=== PATIENT | male | born 1950 | race Caucasian/White ===

== ENCOUNTER 2017-02-24 10:04 | Inpatient (IN) | payer MEDICARE, OTHER ==
[2017-02-24] VITALS (7 sets, daily range): BP systolic 132–151; BP diastolic 60–83; PULSE 55–65; RESP 16–18; TEMP 96.6–97.8; O2SAT 95–99
[~2017-02-24] VITALS: Ht 180.3 cm; Wt 98.1 kg
[~2017-02-24 10:04] MED LIST: ASPI81 PO; ENOX40P SQ; FOLI1 PO; HYDR-3580 PO; LEFL20TA7 PO; LORA1TAB PO; METF500 PO; METH2.5 PO; PRAV20 PO; SERT-132 PO; TAMS0.4C67 PO
[2017-02-24] MEDS ORDERED: PRAV40TA2 PO (10:23)
[2017-02-24] MEDS ORDERED: SERT-132 PO (10:23)
[2017-02-24] MEDS ORDERED: FOLI1TAB6 PO (10:23)
[2017-02-24] MEDS ORDERED: LEFL1TAB3 PO (10:23)
[2017-02-24] MEDS ORDERED: ASPI-110 PO (10:23)
[2017-02-24] MEDS ORDERED: LORA1TAB12 PO (10:23)
[2017-02-24] MEDS ORDERED: METH2.5T PO (10:23)
[2017-02-24] MEDS ORDERED: METF500T PO (10:23)
--- NOTE | 2017-02-24 10:39 | PD ---
HPI Chief Complaint: Hip Injury Time Seen by Provider: 10:23 Travel History International Travel<30 days: No Contact w/Intl Traveler<30days: No Traveled to known affect area: No History of Present Illness HPI This is a 67-year-old male is complaining of pain in his left hip. He has a history of hip replacement. The original hip replacement was in April 2015. He had 2 subsequent dislocations and had a revision of the hip March 192015. Apparently a locking ring was used at that time. Patient has done well since then. He does say that occasionally he feels like it slipping but it is not dislocated. His morning he was leaning forward and he believes it may have dislocated. He is having pain in the left hip PFSH Past Medical History Hx Anticoagulant Therapy: Yes Arthritis: Yes Anxiety: Yes Depression: Yes Cancer: No Cardiovascular Problems: Yes High Cholesterol: Yes Diabetes: Yes (TYPE 2) Patient Takes Glucophage: Yes Diminished Hearing: No Endocrine: Yes (PSORIASIS) Gastrointestinal Disorders: Yes (REFLUX) GERD: Yes Genitourinary: Yes (BENIGN PROSTATIC HYPERTROPHY) Hepatitis: No Hiatal Hernia: No Hypertension: Yes Immune Disorder: Yes (RHEUMATOID ARTHRITIS) Musculoskeletal: Yes (ARTHRITIS) Neurologic: No Psychiatric: No Reproductive: No Respiratory: No Thyroid Disease: No Influenza Vaccination: Yes ?: Not Past Surgical History Abdominal Surgery: No AICD: No Cardiac Surgery: No Ear Surgery: No Endocrine Surgery: No Eye Surgery: No Genitourinary Surgery: No Gynecologic Surgery: No Joint Replacement: Yes (LEFT HIP REPLACEMENT ) Oral Surgery: No Pacemaker: No Thoracic Surgery: No Other Surgery: Yes (LEFT TOTAL HIP REPLACEMENT-APR 2015) Social History Alcohol Use: Yes ([facility]) Tobacco Use: No (quit 1990) Substance Use: Yes (MARIJUANA PER PATIENT) Allergies-Medications (Allergen,Severity, Reaction): Coded Allergies: No Known Allergies (Verified , 02/24/17) Reported Meds & Prescriptions Reported Meds & Active Scripts Active Reported Aspirin 81 (Aspirin) 81 Mg Tabdr 81 Mg PO DAILY Methotrexate 2.5 Mg Tab 2.5 Mg PO Q7D Folic Acid 1 Mg Tablet 1 Mg PO DAILY Leflunomide 20 Mg Tab 20 Mg PO DAILY Lorazepam 1 Mg Tab 1 Mg PO HS PRN Sertraline (Sertraline HCl) 50 Mg Tab 50 Mg PO DAILY Pravastatin 40 Mg Tab 40 Mg PO HS Metformin (Metformin HCl) 500 Mg Tab 500 Mg PO DAILY With a meal Review of Systems General / Constitutional: No: Fever, Chills Eyes: No: Diploplia, Blurred Vision HENT: No: Headaches, Vertigo Cardiovascular: No: Chest Pain or Discomfort, Palpitations Respiratory: No: Shortness of Breath Gastrointestinal: No: Nausea, Vomiting Genitourinary: No: Urgency, Frequency Musculoskeletal: Positive: Pain Skin: No Rash, No Itching Neurologic: No: Dizziness Psychiatric: No: Anxiety Physical Exam Narrative GENERAL: Well-developed male SKIN: Focused skin assessment warm/dry. HEAD: Atraumatic. Normocephalic. EYES: Pupils equal and round. No scleral icterus. No injection or drainage. ENT: No nasal bleeding or discharge. Mucous membranes pink and moist. NECK: Trachea midline. No JVD. CARDIOVASCULAR: Regular rate and rhythm. No murmur appreciated. RESPIRATORY: No accessory muscle use. Clear to auscultation. Breath sounds equal bilaterally. GASTROINTESTINAL: Abdomen soft, non-tender, nondistended. Hepatic and splenic margins not palpable. MUSCULOSKELETAL: No obvious deformities. No clubbing. No cyanosis. No edema. Left leg is shortened and internally rotated. There is tenderness in the left hip NEUROLOGICAL: Awake and alert. No obvious cranial nerve deficits. Motor grossly within normal limits. Normal speech. PSYCHIATRIC: Appropriate mood and affect; insight and judgment normal. Data Data Last Documented VS Vital Signs Date Time Temp Pulse Resp B/P Pulse Ox O2 Delivery O2 Flow Rate FiO2 02/24/17 11:20 99 28 02/24/17 11:20 2.00 02/24/17 11:19 18 02/24/17 10:06 97.8 62 138/73 Orders Hip, Uni(Ap&Lat) Wo Ap Pelvis (02/24/17 10:28) Ondansetron Inj (Zofran Inj) (02/24/17 10:45) Hydromorphone Pf Inj (Dilaudid Pf Inj) (02/24/17 10:45) Propofol 200 Mg/20 Ml Inj (Diprivan 200 (02/24/17 11:15) Electrocardiogram (02/24/17 11:46) Complete Blood Count With Diff (02/24/17 11:46) Basic Metabolic Panel (Bmp) (02/24/17 11:46) Prothrombin Time / Inr (Pt) (02/24/17 11:46) Act Partial Throm Time (Ptt) (02/24/17 11:46) Urinalysis - C+S If Indicated (02/24/17 11:46) MDM Medical Decision Making Medical Screen Exam Complete: Yes Emergency Medical Condition: Yes Medical Record Reviewed: Yes Differential Diagnosis Differential includes fracture, contusion, dislocation left hip Narrative Course X-ray shows a dislocation of the prosthetic hip. Attempts to reduce the hip were unsuccessful. I have discussed the case with Dr. Butler. Patient will be admitted to [facility] under Dr. Gomez's service Procedures Procedure Narrative Informed consent for procedural sedation was obtained. Patient was given 120 mg of propofol and appeared to be well sedated. Attempts to reduce the hip were made and were not successful. Diagnosis Primary Impression: Dislocation of internal left hip prosthesis Admitting Information Admitting Physician Requests: Admit Luis Felipe Alexis MD Feb 24, 2017 10:39
[2017-02-24] MEDS ORDERED: HYDROmorphone HCL PF 1 MG/ML VIAL IV PUSH ONE ×3 (10:45→15:00)
[2017-02-24] MEDS ORDERED: ONDANSETRON HCL 4 MG/2 ML VIAL IV PUSH ONE (10:45)
[2017-02-24] MEDS ORDERED: PROPOFOL 200 MG/20 ML AMP IV ONE (11:15)
--- NOTE | 2017-02-24 11:31 | RADRPT ---
EXAM DATE/TIME: 02/24/2017 10:44 [facility] COMPARISON: HIP LEFT (AP&LAT 2/3VWS) WO AP PELVIS, March 09, 2016, 20:09. INDICATIONS : Sudden onset of severe left hip pain, felt a pop in hip MEDICAL HISTORY : None. SURGICAL HISTORY : Left hip replacement ENCOUNTER: Initial ACUITY: 1 day PAIN SCORE: 9/10 LOCATION: Left hip FINDINGS: A dislocated left hip prosthesis is noted. The femoral component is superior to the acetabular cup. I t is uncertain whether it is dislocated anteriorly or posterior. Bony structures are intact. CONCLUSION: Dislocated left hip prosthesis. No evidence of acute fracture. Seamus Barajas MD on February 24, 2017 at 11:28 Board Certified Radiologist. This report was verified electronically.
[2017-02-24 12:08] LABS: AUTOMATED NEUTROPHIL # 4.9 TH/MM3 (1.8-7.7); BASOPHIL % 0.6 % (0.0-2.0); EOSINOPHIL % 0.8 % (0.0-4.0); HEMATOCRIT 41.8 % (39.0-51.0); HEMO FLAGS DIFF FINAL; LYMPH % 14.3 % (9.0-44.0); LYMPHOCYTE # 0.9 TH/MM3 (1.0-4.8); MEAN CELL VOLUME 91.1 FL (80.0-100.0); MEAN CORPUSCULAR HEMOGLOBIN 29.5 PG (27.0-34.0); MEAN CORPUSCULAR HGB CONC 32.4 % (32.0-36.0); MONO % 6.6 % (0.0-8.0); NEUT % 77.7 % (16.0-70.0); PLATELET COUNT 182 TH/MM3 (150-450); RED BLOOD COUNT 4.59 MIL/MM3 (4.50-5.90); RED CELL DISTRIBUTION WIDTH 14.8 % (11.6-17.2); WHITE BLOOD COUNT 6.2 TH/MM3 (4.0-11.0)
[2017-02-24 12:17] LABS: POTASSIUM 4.3 MEQ/L (3.5-5.1)
[2017-02-24 12:21] LABS: BICARBONATE 26.6 MEQ/L (21.0-32.0)
[2017-02-24 12:22] LABS: APTT (PATIENT) 28.3 SEC (24.3-30.1); PROTHROMBIN TIME - PATIENT 10.9 SEC (9.8-11.6)
[2017-02-24] MEDS ORDERED: SODIUM CHLOR 0.9% 1000 ML INJ 1,000 ML IV ONE (12:30)
[2017-02-24 13:36] LABS: BLOOD, URINE NEG (NEG); GLUCOSE,URINE NEG (NEG); KETONE, URINE NEG (NEG); NITRITE,URINE NEG (NEG); PH, URINE 5.5 (5.0-8.5)
[2017-02-24 13:37] LABS: METHOD OF COLLECTION CLEAN CATCH; URINE COLOR YELLOW (YELLW/STRAW)
[2017-02-24 13:42] LABS: COMMENT (UR) CULT NOT INDICATED; CULTURE IF INDICATED CULT NOT INDICATED; WBC, URINE 0-2 /hpf (0-5)
[2017-02-24] MEDS ORDERED: LORazepam 1 MG TAB PO PRN (17:45)
--- NOTE | 2017-02-24 18:20 | PD.CONS ---
HPI [facility] Consult Requested By Primary Care Physician Sherman Anderson M.D. Diagnoses: Past Family Social History Allergies: Coded Allergies: No Known Allergies (Verified , 02/24/17) Physical Exam Vital Signs Vital Signs Date Time Temp Pulse Resp B/P Pulse Ox O2 Delivery O2 Flow Rate FiO2 02/24/17 14:57 58 18 149/68 98 Room Air 02/24/17 13:31 65 18 151/78 96 Room Air 02/24/17 12:51 18 02/24/17 12:00 65 18 132/60 99 Nasal Cannula 2 02/24/17 11:56 65 99 Nasal Cannula 2 02/24/17 11:20 99 28 02/24/17 11:20 99 2.00 02/24/17 11:19 18 02/24/17 10:06 97.8 62 18 138/73 99 Physical Exam GENERAL: This is a well-nourished, well-developed patient, in no apparent distress. SKIN: No rashes, ecchymoses or lesions. Cool and dry. HEAD: Atraumatic. Normocephalic. No temporal or scalp tenderness. EYES: Pupils equal round and reactive. Extraocular motions intact. No scleral icterus. No injection or drainage. ENT: Nose without bleeding, purulent drainage or septal hematoma. Throat without erythema, tonsillar hypertrophy or exudate. Uvula midline. Airway patent. NECK: Trachea midline. No JVD or lymphadenopathy. Supple, nontender, no meningeal signs. CARDIOVASCULAR: Regular rate and rhythm without murmurs, gallops, or rubs. RESPIRATORY: Clear to auscultation. Breath sounds equal bilaterally. No wheezes , rales, or rhonchi. GASTROINTESTINAL: Abdomen soft, non-tender, nondistended. No hepato-splenomegaly , or palpable masses. No guarding. MUSCULOSKELETAL: Extremities without clubbing, cyanosis, or edema. No joint tenderness, effusion, or edema noted. No calf tenderness. Negative Homans sign bilaterally. NEUROLOGICAL: Awake and alert. Cranial nerves II through XII intact. Motor and sensory grossly within normal limits. Five out of 5 muscle strength in all muscle groups. Normal speech. Laboratory Laboratory Tests Test 02/24/17 02/24/17 10:35 13:25 White Blood Count 6.2 Red Blood Count 4.59 Hemoglobin 13.6 Hematocrit 41.8 Mean Corpuscular Volume 91.1 Mean Corpuscular Hemoglobin 29.5 Mean Corpuscular Hemoglobin 32.4 Concent Red Cell Distribution Width 14.8 Platelet Count 182 Mean Platelet Volume 9.0 Neutrophils (%) (Auto) 77.7 Lymphocytes (%) (Auto) 14.3 Monocytes (%) (Auto) 6.6 Eosinophils (%) (Auto) 0.8 Basophils (%) (Auto) 0.6 Neutrophils # (Auto) 4.9 Lymphocytes # (Auto) 0.9 Monocytes # (Auto) 0.4 Eosinophils # (Auto) 0.0 Basophils # (Auto) 0.0 CBC Comment DIFF FINAL Differential Comment Prothrombin Time 10.9 Prothromb Time International 1.0 Ratio Activated Partial 28.3 Thromboplast Time Sodium Level 141 Potassium Level 4.3 Chloride Level 107 Carbon Dioxide Level 26.6 Anion Gap 7 Blood Urea Nitrogen 16 Creatinine 0.91 Estimat Glomerular Filtration 83 Rate Random Glucose 107 Calcium Level 9.3 Urine Collection Type CLEAN CATCH Urine Color YELLOW Urine Turbidity CLEAR Urine pH 5.5 Urine Specific [place] 1.017 Urine Protein NEG Urine Glucose (UA) NEG Urine Ketones NEG Urine Occult Blood NEG Urine Nitrite NEG Urine Bilirubin NEG Urine Leukocyte Esterase NEG Urine WBC 0-2 Microscopic Urinalysis Comment CULT NOT INDICATED Result Diagram: 02/24/17 1035 02/24/17 1035 Kriss Long MD Feb 24, 2017 18:20
[2017-02-24] MEDS ORDERED: HYDROmorphone HCL PF 1 MG/ML VIAL IV PUSH PRN (18:45)
[2017-02-24] MEDS: HYDROmorphone HCL PF 1 MG/ML VIAL IV PUSH PRN (19:22)
[2017-02-24] MEDS: CYCLOBENZAPRINE HCL 10 MG TAB PO PRN (20:40)
[2017-02-24] MEDS: PRAVASTATIN SOD 40 MG TAB PO SCH (20:41)
[2017-02-24] MEDS ORDERED: LEFLUNOMIDE 20 MG PO SCH (21:00)
--- NOTE | 2017-02-24 21:31 | MH ---
cc: BASIL KULKARNI MD DATE OF ADMISSION 02/24/2017 ADMISSION DIAGNOSIS Dislocation left hip prosthesis. HISTORY OF THE PRESENT ILLNESS The patient is a 67-year-old white male who presented to the [facility] today with complaints of a dislocated left hip prosthesis. The patient had surgery on 03/19/2016 when he had a constrained acetabular liner placed due to recurrent hip dislocations following placement of a prosthesis. The patient reports that yesterday he felt something slide and apparently has had this sensation several times before. Today he was at his house and apparently working on a cabinet and he felt his hip dislocate. He presented to [facility]. A call was placed to Dr. Freddie Harris who was covering [facility] who subsequently placed a call to me. The patient is seen in his room on the sixth floor at [facility]. PAST MEDICAL HISTORY Significant for: 1. Psoriatic arthritis. 2. Hyperlipidemia. 3. Depression. 4. Anxiety. 5. And diabetes. PAST SURGICAL HISTORY The patient has had prior surgery includin. A left knee arthroscopy performed by the undersigned in December of 2012. 2. Arthroscopic treatment of his left shoulder performed by the undersigned on 12/31/2012. 3. And his right shoulder on 01/26/2013. 4. The patient had a left total hip arthroplasty performed on 05/11/2015 and subsequently suffered some hip dislocations. The patient had the constrained liner placed on 03/19/2016 and he was last seen in my office on 01/03/2017. CURRENT MEDICATIONS 1. Metformin 500 milligrams one per day. 2. Lorazepam 1 milligram one per day. 3. Leflunomide 20 milligrams one per day. 4. Zoloft 50 milligrams one per day. 5. Pravastatin 40 milligrams one per day. 6. Methotrexate 2.5 milligrams / 20 milligrams per week. 7. Aspirin 81 milligrams one per day. 8. Folic acid 1 milligram one per day. ALLERGIES None known. SOCIAL HISTORY The patient is and lives in [place], [place]. He is retired. FAMILY HISTORY Noncontributory to current orthopedic care. REVIEW OF SYSTEMS HEENT: Head negative. Eyes negative, Ears negative, Nose, mouth and throat negative. HEART: Negative. LUNGS: Negative. GASTROINTESTINAL: Negative. GENITOURINARY: Negative. MUSCULOSKELETAL: Pain Left Hip arthritis, weakness. CENTRAL NERVOUS SYSTEM: Negative. PSYCHIATRIC: Mood swings, anxiety. SKIN: Psoriasis. MIND: Poor memory. PHYSICAL EXAMINATION GENERAL: The patient is a well-developed, well-nourished white male. VITAL SIGNS: Stable. Afebrile. HEAD, EYES, EARS, NOSE, AND THROAT: Normocephalic, atraumatic. Pupils equal, round, reactive to light. Extraocular muscles intact. Ears non-tender. Nose non-obstructed. Posterior pharynx non-erythematous. NECK: No thyromegaly. No lymphadenopathy. LUNGS: Clear to auscultation bilaterally. HEART: Regular rate and rhythm. No murmurs heard. ABDOMEN: Soft, non-tender. EXTREMITIES: The patient has a well healed hip incision on the left side. His leg is in internal rotation and slight flexion consistent with a posterior hip dislocation. The patient is intermittently having some muscle spasms, otherwise however, he appears reasonably comfortable. He has gotten some pain medication. PATIENT TRANSPORT OFFICER: Mental status alert and oriented. Cranial nerves II through XII grossly intact. Motor intact. Sensory intact. This includes plantar flexion and dorsiflexion of his foot and toes. IMAGING X-rays from [facility] dated today demonstrate a dislocation of his constrained total hip prosthesis. The femoral component appears satisfactory. The acetabular component also appears satisfactory and well-fixed. The liner is in place and the locking ring is present on the liner and is in normal position. The femoral head however, is dislocated and this appears to be posterior. IMPRESSION Left hip dislocation of locked / constrained acetabular component total hip prosthesis. PLAN Discussed the patient's case with the patient care representative from the [employer] and I have discussed this situation with the patient. It appears at the most reasonable course is to exchange his liner and place a second locked liner. At this point I do not have a good explanation for how the patient sustained this dislocation either through repetitive wear of a liner or possibly a manufacturing defect. I have discussed with the patient that it will be necessary pull this liner however, it may well be torn apart in the extraction process. We will plan to proceed with surgery tomorrow afternoon. MD BEVERLY Urbina/DOUG /8:47 PM /9:21 PM [facility]
[2017-02-25] VITALS (7 sets, daily range): BP systolic 119–161; BP diastolic 64–91; PULSE 58–78; RESP 16–18; TEMP 98.1–99.5; O2SAT 95–100
[2017-02-25] MEDS: HYDROmorphone HCL PF 1 MG/ML VIAL IV PUSH PRN ×3 (01:41→09:59)
[2017-02-25] MEDS ORDERED: LACTATED RINGER'S 1000 ML IV PRN (03:30)
[2017-02-25] MEDS ORDERED: SODIUM CHLORID 0.9% 500 ML IV PRN (03:30)
[2017-02-25] MEDS ORDERED: CHLORHEXIDINE GLUCONATE 2 % 1 PACK (2 CLOTHS) TOPICAL PRN (03:30)
[2017-02-25] MEDS ORDERED: METOPROLOL TARTRATE 25 MG TAB PO PRN (03:30)
[2017-02-25] MEDS ORDERED: INSULIN HUMAN REGULAR 1,000 UNITS/10 ML VIAL SQ PRN (03:30)
[2017-02-25] MEDS ORDERED: POVIDONE IODINE 5% (ANTISEPSIS KIT) 4 APPLICATIONS EACH NARE PRN (03:30)
[2017-02-25] MEDS: CYCLOBENZAPRINE HCL 10 MG TAB PO PRN (04:29)
[2017-02-25] MEDS: ASPIRIN EC 81 MG TABEC PO SCH (07:45)
[2017-02-25] MEDS: FOLIC ACID 1 MG TAB PO SCH (09:58)
[2017-02-25] MEDS: SERTRALINE HCL 50 MG TAB PO SCH (09:58)
[2017-02-25] MEDS ORDERED: GENTAMICIN SULFATE 80 MG/2 ML VIAL ONE (11:50)
[2017-02-25] MEDS ORDERED: ACETAMINOPHEN 1000 MG/100 ML VIAL IV ONE (12:12)
[2017-02-25] MEDS ORDERED: FAMOTIDINE 20 MG/2 ML VIAL ONE (12:20)
[2017-02-25] MEDS ORDERED: MIDAZOLAM HCL 2 MG/2 ML VIAL ONE (12:20)
[2017-02-25] MEDS ORDERED: ceFAZolin INJ 1,000 MG VIAL IV ONE (14:08)
[2017-02-25] MEDS ORDERED: SENNOSIDES 8.6 MG TAB PO PRN (16:00)
[2017-02-25] MEDS ORDERED: ACETAMINOPHEN/HYDROcodone 325 MG/7.5 MG TAB PO PRN (16:00)
[2017-02-25] MEDS ORDERED: MORPHINE SULFATE 30 MG/30 ML PCA IV SCH (16:00)
[2017-02-25] MEDS ORDERED: LACTULOSE SYRUP 20 GM/30 ML CUP PO PRN (16:00)
[2017-02-25] MEDS ORDERED: NALOXONE HCL 0.4 MG/ML AMP IV PRN (16:00)
[2017-02-25] MEDS ORDERED: SODIUM CHLORIDE 0.9% FLUSH 10 ML FLUSH IV FLUSH PRN (16:00)
[2017-02-25] MEDS ORDERED: ACETAMINOPHEN 325 MG TAB PO PRN (16:00)
[2017-02-25] MEDS ORDERED: MAGNESIUM HYDROXIDE SUSP 30 ML CUP PO PRN (16:00)
[2017-02-25] MEDS ORDERED: BISACODYL 10 MG SUPP RECTAL PRN (16:00)
[2017-02-25] MEDS ORDERED: Post-op Orders (for Pharmacy) MISC XX ONE (16:00)
[2017-02-25] MEDS ORDERED: DO NOT ADM ANY ANTICOAGULANT DRUGS PRN (16:11)
[2017-02-25] MEDS ORDERED: *LABETALOL HCL 100 MG/20 ML VIAL PERIprocedural Use ONLY ONE (16:19)
[2017-02-25] MEDS ORDERED: fentaNYL CITRATE 250 MCG/5 ML AMP ONE (16:23)
[2017-02-25] MEDS ORDERED: *ENALAPRILAT 1.25 MG/ML VIAL PERIprocedural Use ONLY ONE (16:27)
--- NOTE | 2017-02-25 17:06 | RADRPT ---
EXAM DATE/TIME: 02/25/2017 16:27 [facility] COMPARISON: HIP LEFT (AP&LAT 2/3VWS) WO AP PELVIS, February 24, 2017, 10:44. INDICATIONS : Post op left hip. PACU. MEDICAL HISTORY : Chronic left hip dislocations. SURGICAL HISTORY : Left total hip arthroplasty. ENCOUNTER: Initial ACUITY: 1 day PAIN SCORE: 4/10 LOCATION: Left hip FINDINGS: Interval revision of left hip arthroplasty. Arthroplasty components are in anatomic alignment without evidence for loosening or fracture. There is a De Guzman catheter in place. Soft tissue emphysema and ovalles rgical clips are seen in the left lateral hip. CONCLUSION: 1. Expected postoperative changes of left hip arthroplasty revision in anatomic alignment without sig nificant acute fracture. Kobi Apodaca MD on February 25, 2017 at 17:02 Board Certified Radiologist. This report was verified electronically.
--- NOTE | 2017-02-25 18:29 | HHI.PR ---
Subjective Subjective Remarks status post surgery Sitting up in chair Pain well-controlled No chest pain No shortness of breath Afebrile No nausea, no vomiting Family at bedside Review of Systems Constitutional Constitutional Remarks 12 point review of systems completed, negative except as noted above Vitals/Results Intake & Output 02/24/17 02/24/17 02/25/17 15:00 23:00 07:00 Intake Total 240 ml 1329 ml 847 ml Output Total 250 ml 850 ml 875 ml Balance -10 ml 479 ml -28 ml Intake Oral 240 ml 480 ml 480 ml IV Total 849 ml 367 ml Output Urine Total 250 ml 850 ml 875 ml # Voids 1 # Bowel Movements 0 0 Vital Signs Vital Signs Date Time Temp Pulse Resp B/P Pulse Ox O2 Delivery O2 Flow Rate FiO2 02/25/17 17:25 98.7 64 18 139/67 100 02/25/17 17:23 Nasal Cannula 2.00 02/25/17 17:00 58 12 162/72 97 Nasal Cannula 2 02/25/17 16:54 15 02/25/17 16:43 60 12 174/84 100 Nasal Cannula 2 02/25/17 16:30 59 9 197/93 100 Nasal Cannula 2 02/25/17 16:26 59 9 196/91 100 Nasal Cannula 2 02/25/17 16:20 70 7 193/88 100 Nasal Cannula 2 02/25/17 16:18 74 18 183/81 100 Nasal Cannula 2 02/25/17 16:15 97.4 80 16 190/83 100 Nasal Cannula 2 02/25/17 12:00 99.5 62 18 161/86 97 02/25/17 08:00 98.2 58 18 147/74 98 02/25/17 06:07 18 02/25/17 04:11 Room Air 02/25/17 04:00 98.1 78 16 119/91 95 02/25/17 00:00 98.6 62 16 142/68 99 02/24/17 19:00 96.7 55 16 132/72 95 CBC/BMP: 02/24/17 1035 02/24/17 1035 Lab Results Laboratory Tests Test 02/24/17 23:40 Blood Type A POSITIVE Antibody Screen NEGATIVE Crossmatch Leukocyte-Reduced Red Blood Cells Blood Bank Comment Physical Exam General General Appearance: Well Developed, Well Nourished, No Acute Distress, Comfortable Eyes Eye Exam: Pupils Equal, Pupils Reactive Ears & Nose Ears & Nose Exam: Nasal Mucosa [place] Throat Throat Exam: Oral Mucosa [place] & Moist Neck Neck Exam: Neck Supple, Trachea Midline Pulmonary Resp Exam: Clear Bilaterally, No Distress Cardiology CV Exam: Normal Sinus Rhythm, Good Perfusion Gastrointestinal/Abdomen GI Exam: Soft, Non-Tender, Bowel Sounds Present, Non-Distended Musculoskeletal MS Exam: Joints Intact MS Remarks Left hip dressing dry and intact Integumentary Skin Exam: Warm, Dry Extremeties Extremities Exam: No Edema, Pedal Pulses Palpable Neurologic Neuro Exam: Alert, Awake, Oriented, Speech Clear, Media Developer Equal Psychiatric Psych Exam: Appropriate Responses VTE Prophylaxis VTE Prophylaxis Device: SCDs, TEDs VTE Prophylaxis Meds: Lovenox Assessment/Plan Problem List: (1) Dislocation of internal left hip prosthesis (2) GERD (gastroesophageal reflux disease) (3) Rheumatoid arthritis (4) Hyperlipidemia (5) Osteoarthritis (6) Diabetes 1.5, managed as type 2 (7) Anxiety and depression Assessment/Plan Hx of left total hip arthroplasty performed on 05/11/2015, S/P constrained liner placed on 03/19/2016 S/P exchange of acetabular liner 02/25 appreciate ortho input Continue with postoperative orthopedic care Physical therapy Pain management Wound care antiemetics PRN Bowel management Lovenox for DVT prophylaxis Continue with home medications Start Accu-Cheks before meals and at bedtime with insulin therapy as needed HH in the morning Continue with Lovenox for DVT prophylaxis Case management consultation for discharge planning Discussed with patient and family Discussed with RN Discussed with Dr. Long This patient was seen by myself and Dr. Dr. Long, this note is written on his behalf Problem Qualifiers (1) Dislocation of internal left hip prosthesis: Qualified Code: T84.021A - Dislocation of internal left hip prosthesis, initial encounter (2) Rheumatoid arthritis: Qualified Code: M06.9 - Rheumatoid arthritis, involving unspecified site, unspecified rheumatoid factor presence (3) Hyperlipidemia: Qualified Code: E78.5 - Hyperlipidemia, unspecified hyperlipidemia type (4) Osteoarthritis: Qualified Code: M19.90 - Osteoarthritis, unspecified osteoarthritis type, unspecified site Linda Jennings Feb 25, 2017 18:29
[2017-02-25] MEDS ORDERED: DEXTROSE 50% IN WATER 50 ML VIAL(D50) IV PRN (18:30)
[2017-02-25] MEDS ORDERED: GLUCAGON 1 MG/ML VIAL OTHER PRN (18:30)
--- NOTE | 2017-02-25 19:45 | EKG ---
Date Performed: 02/24/2017 Time Performed: 12:03:30 PTAGE: 67 years EKG: SINUS BRADYCARDIA MARKED LEFT AXIS DEVIATION INTRAVENTRICULAR CONDUCTION DELAY POSSIBLE LAT ERAL MYOCARDIAL INFARCTION ABNORMAL ECG PREVIOUS TRACING : 04/22/2015 09.33 Since previous tracing, no significant change noted DOCTOR: Lon Lafleur Interpretating Date/Time 02/25/2017 19:43:50
[2017-02-25] MEDS: INSULIN ASPART SUPPLEMENTAL SCALE SQ SCH (21:00)
[2017-02-25] MEDS: SODIUM CHLORIDE 0.9% FLUSH 10 ML FLUSH IV FLUSH SCH (21:00)
[2017-02-25] MEDS: PRAVASTATIN SOD 40 MG TAB PO SCH (21:13)
[2017-02-25] MEDS: ceFAZolin 2 GM PREMIX 50 ML IV SCH (21:13)
[2017-02-25] MEDS: DOCUSATE SODIUM 50 MG/SENNA 8.6 MG TAB PO SCH (21:13)
[2017-02-25] MEDS: PCA - TOTAL MG MORPHINE DELIVERED PER SHIFT SCH (21:14)
[2017-02-26] VITALS: BP 117/64; PULSE 73; RESP 16; TEMP 99.9; O2SAT 96
[2017-02-26 04:00] VITALS: BP 109/71; PULSE 70; RESP 17; TEMP 98.9; O2SAT 96
[2017-02-26] MEDS ORDERED: ENOXAPARIN SODIUM 40 MG/0.4 ML SYRINGE SQ SCH (04:00)
[2017-02-26] MEDS: ceFAZolin 2 GM PREMIX 50 ML IV SCH ×2 (05:35→13:18)
[2017-02-26] MEDS: PCA - TOTAL MG MORPHINE DELIVERED PER SHIFT SCH ×2 (05:36→13:18)
[2017-02-26] MEDS: INSULIN ASPART SUPPLEMENTAL SCALE SQ SCH ×3 (06:04→14:10)
[2017-02-26 08:00] VITALS: BP 135/67; PULSE 68; RESP 20; TEMP 99.3; O2SAT 95
[2017-02-26] MEDS: SODIUM CHLORIDE 0.9% FLUSH 10 ML FLUSH IV FLUSH SCH (09:00)
--- NOTE | 2017-02-26 09:59 | MP ---
cc: BASIL KULKARNI MD DATE OF SURGERY 02/25/2017 PREOPERATIVE DIAGNOSIS Left hip dislocation of constrained total hip arthroplasty. POSTOPERATIVE DIAGNOSIS Left hip dislocation of constrained total hip arthroplasty. PROCEDURE Left hip total hip revision with exchange of acetabular liner. PROCEDURE IN DETAIL Informed consent was obtained. The patient taken to the operating room, placed in the supine position on the operating room table. He was initially under general anesthesia via the anesthesia team. The patient was then turned to the lateral decubitus position on the operating table. He was fixed with the hip positioner and the hip was then prepped above the iliac crest to the tip of the toes with Betadine soap followed by Betadine paint. A De Guzman catheter was placed prior to the procedure. Following the prep, draping commenced with sterile towels about the hip, split sheets, stockinette was applied to the foot and calf. This was wrapped with Coban. A laparotomy sheet was placed. A sterile Ioban drape was placed. At that time, a time-out was held and confirmed. The patient was given two grams of Ancef at the initiation of the operative procedure. At that time, the hip was flexed and the old hip incision was reopened through skin and subcutaneous tissue. Fine bleeders were cleared utilizing the Bovie. Dissection was carried through the fascia niya to the dislocated hip was level. At that point, further dissection was carried out proximally and distally. The sciatic nerve was identified and protected. A Charnley retractor was placed. The leg was rotated and utilizing an impactor, the femoral head was removed. The acetabular component was removed with a combination use of an osteotome and drilling drill holes with a 3.2 drill bit and 4.5 cancellus screws. The one acetabular component was finally removed. I was unable to identify an exact cause or failure of this component. The locking ring was placed, the cup was well fixed. The hip was irrigated. A new Neavitt +4 constrained liner was placed and impacted into the acetabular component which would remain well-fixed. This was a 38 x 58 liner. Next, the ring was placed over the femoral neck and the 38-mm diameter +5 neck length head was impacted onto the femoral stem. Reduction was accomplished. The interlocking ring was impacted onto position. Stability appeared excellent. At that time, the wound was closed with #1 Vicryl, 2-0 Vicryl, 3-0 plain and skin gerry. Xeroform, 4x4s, ABD and tape were applied to the patient's hip. He was placed in an abduction pillow. He tolerated the procedure well and was taken to the recovery room in stable condition. At the completion of the procedure, the sponge count, instrument count and needle counts were correct. Estimated blood loss was approximately 100 cc. MD BEVERLY Urbina/LIBRADO /5:01 PM /9:52 AM
[2017-02-26] MEDS: DOCUSATE SODIUM 50 MG/SENNA 8.6 MG TAB PO SCH (10:12)
[2017-02-26] MEDS: FOLIC ACID 1 MG TAB PO SCH (10:12)
[2017-02-26] MEDS: SERTRALINE HCL 50 MG TAB PO SCH (10:12)
[2017-02-26] MEDS: ASPIRIN EC 81 MG TABEC PO SCH (10:12)
--- NOTE | 2017-02-26 11:51 | HHI.PR ---
Subjective Subjective Remarks status post surgery Sitting up in chair Pain well-controlled No chest pain No shortness of breath No nausea, no vomiting Review of Systems Constitutional Constitutional Remarks 12 point review of systems completed, negative except as noted above Vitals/Results Intake & Output 02/25/17 02/25/17 02/26/17 15:00 23:00 07:00 Intake Total 302 ml 2480 ml 480 ml Output Total 1800 ml 750 ml Balance 302 ml 680 ml -270 ml Intake Oral 480 ml 480 ml IV Total 302 ml Other 2000 ml Output Urine Total 800 ml 750 ml Estimated Blood Loss 300 ml Other 700 ml # Voids 2 0 # Bowel Movements 0 0 Vital Signs Vital Signs Date Time Temp Pulse Resp B/P Pulse Ox O2 Delivery O2 Flow Rate FiO2 02/26/17 08:00 99.3 68 20 135/67 95 02/26/17 05:36 18 02/26/17 04:00 98.9 70 17 109/71 96 02/26/17 00:00 99.9 73 16 117/64 96 02/25/17 21:14 17 02/25/17 20:00 98.5 64 17 158/64 99 02/25/17 19:10 100 Nasal Cannula 2.00 02/25/17 17:25 98.7 64 18 139/67 100 02/25/17 17:23 Nasal Cannula 2.00 02/25/17 17:00 58 12 162/72 97 Nasal Cannula 2 02/25/17 16:54 15 02/25/17 16:43 60 12 174/84 100 Nasal Cannula 2 02/25/17 16:30 59 9 197/93 100 Nasal Cannula 2 02/25/17 16:26 59 9 196/91 100 Nasal Cannula 2 02/25/17 16:20 70 7 193/88 100 Nasal Cannula 2 02/25/17 16:18 74 18 183/81 100 Nasal Cannula 2 02/25/17 16:15 97.4 80 16 190/83 100 Nasal Cannula 2 02/25/17 12:00 99.5 62 18 161/86 97 CBC/BMP: 02/24/17 1035 02/24/17 1035 Physical Exam General General Appearance: Well Developed, Well Nourished, No Acute Distress, Comfortable Eyes Eye Exam: Pupils Equal, Pupils Reactive Ears & Nose Ears & Nose Exam: Nasal Mucosa [place] Throat Throat Exam: Oral Mucosa [place] & Moist Neck Neck Exam: Neck Supple, Trachea Midline Pulmonary Resp Exam: Clear Bilaterally, No Distress Cardiology CV Exam: Normal Sinus Rhythm, Good Perfusion Gastrointestinal/Abdomen GI Exam: Soft, Non-Tender, Bowel Sounds Present, Non-Distended Musculoskeletal MS Exam: Joints Intact MS Remarks Left hip dressing dry and intact Integumentary Skin Exam: Warm, Dry Extremeties Extremities Exam: No Edema, Pedal Pulses Palpable Neurologic Neuro Exam: Alert, Awake, Oriented, Speech Clear, Associate Manager Equal Psychiatric Psych Exam: Appropriate Responses VTE Prophylaxis VTE Prophylaxis Device: SCDs, TEDs VTE Prophylaxis Meds: Lovenox Assessment/Plan Problem List: (1) Dislocation of internal left hip prosthesis (2) GERD (gastroesophageal reflux disease) (3) Rheumatoid arthritis (4) Hyperlipidemia (5) Osteoarthritis (6) Diabetes 1.5, managed as type 2 (7) Anxiety and depression Assessment/Plan Hx of left total hip arthroplasty performed on 05/11/2015, S/P constrained liner placed on 03/19/2016 S/P exchange of acetabular liner 02/25 appreciate ortho input Continue with postoperative orthopedic care Physical therapy Pain management Wound care antiemetics PRN Bowel management Lovenox for DVT prophylaxis Continue with home medications Accu-Cheks before meals and at bedtime with insulin therapy as needed-refusing finger sticks Continue with Lovenox for DVT prophylaxis Case management consultation for discharge planning Pt. ok for dc if ortho clears Discussed with patient Discussed with RN Discussed with Dr. Long This patient was seen by myself and Dr. Dr. Long, this note is written on his behalf Problem Qualifiers (1) Dislocation of internal left hip prosthesis: Qualified Code: T84.021A - Dislocation of internal left hip prosthesis, initial encounter (2) Rheumatoid arthritis: Qualified Code: M06.9 - Rheumatoid arthritis, involving unspecified site, unspecified rheumatoid factor presence (3) Hyperlipidemia: Qualified Code: E78.5 - Hyperlipidemia, unspecified hyperlipidemia type (4) Osteoarthritis: Qualified Code: M19.90 - Osteoarthritis, unspecified osteoarthritis type, unspecified site Linda Jennings Feb 26, 2017 11:51
[2017-02-26 12:00] VITALS: BP 185/100; PULSE 79; RESP 20; TEMP 98.7; O2SAT 98
[2017-02-26 12:50] VITALS: O2SAT 94
[2017-02-26] MEDS: CYCLOBENZAPRINE HCL 10 MG TAB PO PRN (13:22)
[2017-02-26 16:00] VITALS: BP 166/80; PULSE 77; RESP 20; TEMP 99.3; O2SAT 98
[2017-02-26] MEDS ORDERED: ENOX40P SQ (17:39)
[2017-02-26] MEDS ORDERED: CYCL1TAB29 PO (17:39)
[2017-02-26] MEDS ORDERED: HYDR-3580 PO (17:39)
--- NOTE | 2017-02-26 17:45 | HHI.DS ---
Discharge Summary Admission Date Feb 24, 2017 at 12:02 Discharge Date: Feb 26, 2017 Admitting Diagnosis Dislocation Hip Prosthesis Diagnosis: (1) Status post total replacement of left hip Diagnosis: Secondary (2) Dislocation of internal left hip prosthesis Diagnosis: Principal Procedures Left Total Hip Revision- Exchange of Acetabular Liner Brief History This is a 67 year old male patient s/p placement of constrained liner about a year ago for recurrent dislocation.New dislocation of constrained liner. CBC/BMP: 02/24/17 1035 02/24/17 1035 Significant Findings Laboratory Tests Test 02/24/17 10:35 Neutrophils (%) (Auto) 77.7 % (16.0-70.0) Lymphocytes # (Auto) 0.9 TH/MM3 (1.0-4.8) Estimat Glomerular Filtration 83 ML/MIN (>89) Rate Random Glucose 107 MG/DL (74-106) Imaging Last Impressions Hip X-Ray 02/25/17 0000 Signed Impressions: Service Date/Time: Saturday, February 25, 2017 16:27 - CONCLUSION: 1. Expected postoperative changes of left hip arthroplasty revision in anatomic alignment without significant acute fracture. Kobi Apodaca MD PE at Discharge Excellent- up and walking, no peripheral edema Hospital Course Patient had surgery on 02/25/17. He did well and is ambulation today at full weight bearing with and without support. Pt Condition on Discharge: Good Discharge Disposition: Discharge Home Discharge Instructions Diet Instructions: Diabetic Diet Activities You Can Perform: Weight Bearing as Veto Hill MD Feb 26, 2017 17:45
== END 2017-02-26 18:08 | disposition home or self-care (01) | DRG 468 ==
LOC: PHED 10:04 → PHEDA 12:02 → N06A 16:05
PROVIDERS: ADMIT Orthopaedic Surgery; ATTEND Orthopaedic Surgery
PROC: 0SPB09Z Removal of Liner from Left Hip Joint, Open Approach (ICD-10-PCS; 2017-02-25)
PROC: 0SUE09Z Supplement Left Hip Joint, Acetabular Surface with Liner, Open Approach (ICD-10-PCS; principal; 2017-02-25 13:23)
DX: T84.021A Dislocation of internal left hip prosthesis, initial encounter (principal); M06.9 Rheumatoid arthritis, unspecified; I10 Essential (primary) hypertension; F32.9 Major depressive disorder, single episode, unspecified; E11.9 Type 2 diabetes mellitus without complications; Y83.1 Surgical operation with implant of artificial internal device as the cause of abnormal reaction of the patient, or of later complication, without mention of misadventure at the time of the procedure; E78.5 Hyperlipidemia, unspecified; K21.9 Gastro-esophageal reflux disease without esophagitis; N40.0 Benign prostatic hyperplasia without lower urinary tract symptoms; M19.90 Unspecified osteoarthritis, unspecified site; F41.9 Anxiety disorder, unspecified; Z79.82 Long term (current) use of aspirin; Z79.84 Long term (current) use of oral hypoglycemic drugs
CPT/HCPCS: 27265; 73502; 80048; 81001; 82948; 85025; 85610; 85730; 86850; 86900; 86901; 86920; 93005; 94150; 94770; 96374; 96375; J0131; J0690; J1170; J1580; J1650; J2250; J2270; J2405; J3010; J7030

== ENCOUNTER 2018-07-17 08:13 | Inpatient (IN) ==
--- NOTE | 2018-07-17 08:33 | ED ---
HPI General Chief complaint: [place] Paint Problem Stated complaint: Hip Pain Time Seen by Provider: 07/17/18 08:22 History of Present Illness HPI narrative: This patient was putting his pants on this morning and felt like his hip dislocated. He has had it multiple times before. He has had 2 hip surgeries before. He has some pain that is worse with movement attempts. Duration 1 hour. No alleviating factors. Severity is moderate. No direct trauma to the hip. X-rays show a posterior superior dislocation of the left hip. There is no fracture. Reviewed options with patient and daughter who is a nurse at bedside. He signs informed consent for conscious sedation and reduction of the left hip. See above procedure note. However it was a very challenging procedure. Was very difficult to sedate him properly. I ended up giving him 200 mg IV propofol and 2 mg IV Versed and he still was not sedated properly to get the procedure done. However he had significant respiratory depression and his breath became very shallow but yet when I tried to manipulate his hip he would scream and resist. It was very poor conditions for reduction. I did not feel comfortable giving him any more medication that could blunt his respiratory drive as between resisting when the hip is moved he barely breathe at all. Saturations were never low and he did not lose respiratory drive totally. I did try to apply traction and elevate the femur to reduce it while the [employer] applied pressure downward on the pelvis but it did not work Labs were run. I reviewed with the orthopedist aviation project manager who is going to attempt to reduce the hip in the operating room with proper anesthesia. She recommends observation to the medical doctor. I placed a call to the hospitalist Related Data Home Medications Medication Instructions Recorded Confirmed aspirin 81 mg PO DAILY 06/22/18 07/17/18 leflunomide 20 mg PO DAILY 06/22/18 07/17/18 lorazepam [Ativan] 1 mg PO DAILY 06/22/18 07/17/18 metformin 500 mg PO DAILY 06/22/18 07/17/18 methotrexate sodium 20 mg PO QWEEK 06/22/18 07/17/18 pravastatin 40 mg PO DAILY 06/22/18 07/17/18 sertraline 50 mg PO DAILY 06/22/18 07/17/18 tamsulosin 0.4 mg PO DAILY 06/22/18 07/17/18 Previous Rx's Medication Instructions Recorded hydrocodone-acetaminophen [[place]] 1 tab PO Q6H PRN #12 tab 06/22/18 Allergies Allergy/AdvReac Type Severity Reaction Status Date / Time No Known Allergies Allergy Verified 06/22/18 13:22 Review of Systems ROS: all other systems reviewed are negative PMFSH Social History Social History Substance History: No History of Abuse Second Hand Smoke Exposure: No Smoking Status: Former smoker Tobacco Type: Cigarettes How Often Do You Have a Drink Containing Alcohol: Monthly or less Recent Travel in [facility] within the Last 8 Weeks: No Recent Out of Country Travel within the Last 8 Weeks: No Immunization History Tetanus Immunization: Unsure Exam Narrative Exam Narrative: GENERAL: Well-nourished, well-developed patient with left hip pain . SKIN: Focused skin assessment reveals no rash and nodules. Skin is Warm and dry. HEAD: Atraumatic. Normocephalic. EYES: Pupils equal and round. No scleral icterus. No injection or drainage. ENT: No nasal bleeding or discharge. Mucous membranes pink and moist. NECK: Trachea midline. No JVD. CARDIOVASCULAR: Regular rate and rhythm. No murmur appreciated. RESPIRATORY: No accessory muscle use. Clear to auscultation. Breath sounds equal bilaterally. GASTROINTESTINAL: Abdomen soft, non-tender, nondistended. Hepatic and splenic margins not palpable. MUSCULOSKELETAL: Left leg is shortened. Range of motion is decreased and produces pain. Left-sided pulses readily palpable. no clubbing. No cyanosis. No edema. NEUROLOGICAL: Awake and alert. No obvious cranial nerve deficits. Motor grossly within normal limits. Normal speech. PSYCHIATRIC: Appropriate mood and affect; insight and judgment normal. Procedures Orthopedic Joint Reduction Joint #1: Time Out Performed: No Side: left Joint Reduction Location: hip Analgesia: procedural sedation Technique Used: traction/counter-traction and direct manipulation Post-Reduction Neuro Exam: intact Post-Reduction Vascular Exam: intact Post Reduction X-Ray Obtained: No Post Reduction X-Ray Results: not reduced Splint Applied: No Patient Tolerated Procedure: no complications Additional Comments: Very difficult sedation as in the MDM section Course Initial Documented Vital Signs Temperature 98.6 F 07/17/18 08:24 Pulse Rate 70 07/17/18 08:24 Respiratory Rate 17 07/17/18 08:24 Pulse Oximetry 100 07/17/18 08:24 Last Documented Vital Signs Temperature 98.6 F 07/17/18 08:24 Pulse Rate 65 07/17/18 08:27 Respiratory Rate 17 07/17/18 08:27 Blood Pressure 184/81 H 07/17/18 08:27 Pulse Oximetry 97 07/17/18 10:17 Medical Decision Making MDM Narrative Medical decision making narrative: 68-year-old male with recurrent left hip dislocations. I have ordered some x-rays to evaluate and then will likely need conscious sedation and attempt to replace. Medical Screen Exam Complete: Yes Emergency Medical Condition: Yes Lab Data Lab results reviewed: Yes I reviewed the patient's lab results. Lab results narrative: Labs are normal Result diagrams: 07/17/18 10:20 07/17/18 10:20 Lab Results 07/17/18 07/17/18 07/17/18 Range/Units 10:20 10:20 10:20 WBC 5.2 (4.0-11.0) th/mm3 RBC 4.36 L (4.50-5.90) mil/mm3 Hgb 13.6 (13.0-17.0) gm/dL Hct 40.3 (39.0-51.0) % MCV 92.4 (80.0-100.0) fL MCH 31.2 (27.0-34.0) pg MCHC 33.7 (32.0-36.0) % RDW 14.9 (11.6-17.2) % Plt Count 169 (150-450) th/mm3 MPV 8.8 (7.0-11.0) fL Neut % (Auto) 72.4 H (16.0-70.0) % Lymph % (Auto) 14.5 (9.0-44.0) % [place] % (Auto) 10.4 H (0.0-8.0) % Eos % (Auto) 1.4 (0.0-4.0) % Baso % (Auto) 1.3 (0.0-2.0) % Neut # (Auto) 3.8 (1.8-7.7) th/mm3 Lymph # (Auto) 0.8 L (1.0-4.8) th/mm3 [place] # (Auto) 0.5 (0.0-0.9) th/mm3 Eos # (Auto) 0.1 (0.0-0.4) th/mm3 Baso # (Auto) 0.1 (0.0-0.2) th/mm3 WBC Differential . Differential Comment Auto diff final PT 10.7 (9.8-11.6) sec INR 1.1 Ratio APTT 29.4 (23.4-31.7) sec Sodium 143 (136-145) meq/L Potassium 3.7 (3.5-5.1) meq/L Chloride 110 H (98-107) meq/L Carbon Dioxide 26.3 (21.0-32.0) meq/L Anion Gap 7 (5-15) meq/L BUN 14 (7-18) mg/dL Creatinine 0.89 (0.60-1.30) mg/dL Estimated GFR 85 L (>89) mL/min Random Glucose 96 (74-106) mg/dL Calcium 8.5 (8.5-10.1) mg/dL Imaging Data Attestation: I personally reviewed and interpreted this imaging study as follows : Radiologist's impression: Hip X-Ray 07/17/18 08:29 CONCLUSION: Posterior superior dislocation of the femoral head component out of the acetabular cup. Discharge Plan Discharge Disposition Patient Disposition: ED Admit(ED Internal Use Only) Discharge Details Diagnosis: Dislocation of hip, left, closed Physicians Team ED Provider: Eladio Norman Primary Care Provider: Sherman Anderson Rxs /Orders / Referrals /Forms Prescriptions: No Action metformin 500 mg Tablet 500 mg PO DAILY RF: 0 methotrexate sodium 10 mg Tablet 20 mg PO QWEEK RF: 0 pravastatin 40 mg Tablet 40 mg PO DAILY RF: 0 aspirin 81 mg Tablet,Delayed Release (Dr/Ec) 81 mg PO DAILY RF: 0 leflunomide 20 mg Tablet 20 mg PO DAILY RF: 0 tamsulosin 0.4 mg Capsule 0.4 mg PO DAILY RF: 0 lorazepam [Ativan] 1 mg Tablet 1 mg PO DAILY RF: 0 sertraline 50 mg Tablet 50 mg PO DAILY RF: 0 hydrocodone-acetaminophen [[place]] 5-325 mg tablet 1 tab PO Q6H PRN (Reason: pain) Qty: 12 RF: 0 Discharge Interventions Interventions: Vital Signs Last Done: 07/17/18 08:27 Status ED Status: With Doctor
--- NOTE | 2018-07-17 09:34 | XR ---
EXAM DATE: 07/17/2018 9:03 AM EST AGE/SEX: 68 years / Male INDICATIONS: Left hip pain after moving leg wrong this morning. CLINICAL DATA: This is the patient's initial encounter. Patient reports that signs and symptoms have been present for 1 day and indicates a pain score of 10/10. MEDICAL/SURGICAL HISTORY: . Left hip dislocations. . Left hip replacement and revisions. COMPARISON: [facility] – [place], HIP LEFT 2V, 06/22/2018. . FINDINGS: AP view of the pelvis with 2 views of the left hip joint demonstrate left total hip arthroplasty hard martinez with superior and posterior dislocation of the femoral head component. There are no findings to indicate hardware loosening. Remaining pelvic structures demonstrate no acute abnormality. There is a therosclerotic disease. CONCLUSION: Posterior superior dislocation of the femoral head component out of the acetabular cup. Electronically signed by: Emmanuel Muñoz MD 07/17/2018 9:33 AM EST
[2018-07-17] MEDS ORDERED: Midazolam Inj 5 MG/ML 1 ML Vial ONE (09:54)
[2018-07-17] MEDS ORDERED: Morphine Inj 4 MG/ML Vial IV.PUSH ONE (10:39)
[2018-07-17 11:00] LABS: Baso # (Auto) 0.1 th/mm3 (0.0-0.2); Baso % (Auto) 1.3 % (0.0-2.0); Eos # (Auto) 0.1 th/mm3 (0.0-0.4); Eos % (Auto) 1.4 % (0.0-4.0); Hematocrit 40.3 % (39.0-51.0); Hemoglobin 13.6 gm/dL (13.0-17.0); Lymph # (Auto) 0.8 th/mm3 (1.0-4.8); Lymph % (Auto) 14.5 % (9.0-44.0); Mean Corpuscular HGB Conc 33.7 % (32.0-36.0); Mean Corpuscular Hemoglobin 31.2 pg (27.0-34.0); Mean Corpuscular Volume 92.4 fL (80.0-100.0); Mean Platelet Volume 8.8 fL (7.0-11.0); Mono # (Auto) 0.5 th/mm3 (0.0-0.9); Mono % (Auto) 10.4 % (0.0-8.0); Neut # (Auto) 3.8 th/mm3 (1.8-7.7); Neut % (Auto) 72.4 % (16.0-70.0); Platelet Count 169 th/mm3 (150-450); Red Blood Count 4.36 mil/mm3 (4.50-5.90); Red Cell Distribution Width 14.9 % (11.6-17.2); White Blood Count 5.2 th/mm3 (4.0-11.0)
[2018-07-17 11:10] LABS: Activated Partial Thrombo Time 29.4 sec (23.4-31.7); INR 1.1 Ratio; Prothrombin Time 10.7 sec (9.8-11.6)
[2018-07-17 11:16] LABS: Calcium 8.5 mg/dL (8.5-10.1); Carbon Dioxide 26.3 meq/L (21.0-32.0); Potassium 3.7 meq/L (3.5-5.1)
[2018-07-17] MEDS ORDERED: Dextrose 50% in Water 50 ML Vial IV.PUSH PRN (12:40)
--- NOTE | 2018-07-17 12:47 | P.HPIM ---
History of Present Illness Primary Care Physician: Sherman Anderson MD Chief Complaint: left hip pain History of Present Illness: patient is a 68 y/o male with history of recurrent dislocated hip, psoriatic arthritis, diabetes mellitus, who presented to ER with left hip pain. he says that earlier today when he was trying to out his pants on he just felt that his hip was dislocated after which he stared to have some pain. otherwise he denies any other symptoms. Review of Systems All other systems reviewed negative except as stated in HPI PMFSH - History History Provided By: Patient, Inspecting Machine Adjuster / EMT - Medical History Medical History: Medical History (Last Reviewed 07/17/18 @ 12:44 by Percy Castellanos MD) Diabetes Osteoarthritis - Surgical History Surgical History: Surgical History (Last Reviewed 07/17/18 @ 12:44 by Percy Castellanos MD) History of total left hip replacement - Family History Family History: Family History (Last Updated 07/17/18 @ 12:44 by Percy Castellanos MD) Other No pertinent family history - Tobacco History Second Hand Smoke Exposure: No Tobacco Use In Past 30 Days: No Smoking Status: Former smoker Tobacco Type: Cigarettes - Alcohol History How Often Do You Have a Drink Containing Alcohol: Monthly or less - Substance Use History Substance History: No History of Abuse - Travel History Recent Travel in the [place] Within the Last 8 Weeks: No Recent Travel Out of the Country Within the Last 8 Weeks: No - Immunization History Tetanus Immunization: Unsure Medications and Allergies Allergies Allergy/AdvReac Type Severity Reaction Status Date / Time No Known Allergies Allergy Verified 06/22/18 13:22 Home Medications Medication Instructions Recorded Confirmed Type aspirin 81 mg PO DAILY 06/22/18 07/17/18 History leflunomide 20 mg PO DAILY 06/22/18 07/17/18 History lorazepam [Ativan] 1 mg PO DAILY 06/22/18 07/17/18 History metformin 500 mg PO DAILY 06/22/18 07/17/18 History methotrexate sodium 20 mg PO QWEEK 06/22/18 07/17/18 History pravastatin 40 mg PO DAILY 06/22/18 07/17/18 History sertraline 50 mg PO DAILY 06/22/18 07/17/18 History tamsulosin 0.4 mg PO DAILY 06/22/18 07/17/18 History Exam Vital signs: Vital Signs 12/06/18 08:24 07/17/18 08:27 07/17/18 09:25 Temperature 98.6 F Pulse Rate 70 65 Respiratory Rate 17 17 Blood Pressure 184/81 H Pulse Oximetry 100 100 100 07/17/18 10:17 Temperature Pulse Rate Respiratory Rate Blood Pressure Pulse Oximetry 97 - Constitutional no acute distress - Routine HEENT Exam Eye: Present: PERRL - Routine Neck Exam Present: supple - Routine Respiratory Exam Present: CTA bilaterally - Routine Cardiovascular Exam Present: RRR - Routine Abdominal Exam Present: soft - Routine Extremities Exam Comments: no pedal edema. - Routine Neurological Exam Present: alert, oriented X3 Results - Labs CBC & Chem 7: 07/17/18 10:20 07/17/18 10:20 Labs: Short CBC 07/17/18 Range/Units 10:20 WBC 5.2 (4.0-11.0) th/mm3 Hgb 13.6 (13.0-17.0) gm/dL Hct 40.3 (39.0-51.0) % Plt Count 169 (150-450) th/mm3 BMP 07/17/18 10:20 Sodium 143 Potassium 3.7 Chloride 110 H Carbon Dioxide 26.3 BUN 14 Creatinine 0.89 Calcium 8.5 - Imaging Impressions Hip X-Ray 07/17/18 08:29 CONCLUSION: Posterior superior dislocation of the femoral head component out of the acetabular cup. Caprini VTE Risk Assessment Caprini VTE Risk Assessment: Moderate/High Risk (score >= 2) Caprini Risk Assessment Model: Point Value = 1 Point Value = 2 Point Value = 3 Point Value = 5 Age 41-60 Minor surgery BMI > 25 kg/m2 Swollen legs Varicose veins or History of unexplained or recurrent spontaneous Oral contraceptives or hormone replacement Sepsis (< 1 month) Serious lung disease, including pneumonia (< 1 month) Abnormal pulmonary function Acute myocardial infarction Congestive heart failure (< 1 month) History of inflammatory bowel disease Medical patient at bed rest Age 61-74 Arthroscopic surgery Major open surgery (> 45 min) Laparoscopic surgery (> 45 min) Malignancy Confined to bed (> 72 hours) Immobilizing plaster cast Central venous access Age >= 75 History of VTE Family history of VTE Factor V Leiden Prothrombin [id number] Lupus anticoagulant Anticardiolipin antibodies Elevated serum homocysteine Heparin-induced thrombocytopenia Other congenital or acquired thrombophilia Stroke (< 1 month) Elective arthroplasty Hip, pelvis, or leg fracture Acute spinal cord injury (< 1 month) Prophylaxis Regimen: Total Risk Factor Score Risk Level Prophylaxis Regimen 0-1 Low Early ambulation 2 Moderate Order ONE of the following: *Sequential Compression Device (SCD) *Heparin 5000 units SQ BID 3-4 Higher Order ONE of the following medications: *Heparin 5000 units SQ TID *Enoxaparin/Lovenox 40 mg SQ daily (WT < 150 kg, CrCl > 30 mL/min) *Enoxaparin/Lovenox 30 mg SQ daily (WT < 150 kg, CrCl > 10-29 mL/min) *Enoxaparin/Lovenox 30 mg SQ BID (WT < 150 kg, CrCl > 30 mL/min) AND/OR *Sequential Compression Device (SCD) 5 or more Highest Order ONE of the following medications: *Heparin 5000 units SQ TID (Preferred with Epidurals) *Enoxaparin/Lovenox 40 mg SQ daily (WT < 150 kg, CrCl > 30 mL/min) *Enoxaparin/Lovenox 30 mg SQ daily (WT < 150 kg, CrCl > 10-29 mL/min) *Enoxaparin/Lovenox 30 mg SQ BID (WT < 150 kg, CrCl > 30 mL/min) AND *Sequential Compression Device (SCD) Assessment and Plan - Plan A/P - dislocated left hip closed reduction was attempted in ER which was not successful- ortho was consulted. continue with pain control. -diabetes mellitus; hold Metformin- start on accu-check with SSI -psoriatic arthritis; resume home meds -DVT prophylaxis; pending ortho evaluation/ intervention. Discussed Condition With: ER physician, the patient and RN.
[2018-07-17] MEDS ORDERED: Ketamine Inj 50 MG/5 ML Syringe IV.PUSH ONE (13:12)
[2018-07-17] MEDS ORDERED: fentaNYL Citrate Inj 100 MCG/2 ML Ampul ONE (13:13)
--- NOTE | 2018-07-17 13:54 | P.CONOP ---
[facility] Orth[facility] Consult Note - [facility] Consult date: 07/17/18 Consult reason: joint pain Chief complaint: L hip dislocation, recurrent Narrative: 68-year-old gentleman who has complex history regarding his left hip. He previously underwent primary total hip arthroplasty by Dr. Gomez with recurrent hip dislocations with subsequent left hip arthroplasty revision to constrained liner in March 2016. Patient had subsequent hip dislocations with most recent in June of this year with reported reduction in the ER. Patient presents to the emergency department today with complaints of left hip pain and concern for dislocation after attempting to put his pants on. Imaging demonstrates left hip arthroplasty dislocation with the constrained metal liner dislocated as well. Review of Systems Denies fevers, chills, nausea, vomiting. Denies chest pain, cough, shortness of breath. Denies abdominal pain or change in urination. Denies back pain, weakness, numbness or tingling. Denies dizziness, blurry vision or throat pain. Reports left hip pain and deformity PMFSH - History History Provided By: Patient, Collar Fuser / EMT - Medical History Medical History: Medical History (Last Reviewed 07/17/18 @ 12:44 by Percy Castellanos MD) Diabetes Osteoarthritis - Surgical History Surgical History: Surgical History (Last Reviewed 07/17/18 @ 12:44 by Percy Castellanos MD) History of total left hip replacement - Family History Family History: Family History (Last Updated 07/17/18 @ 12:44 by Percy Castellanos MD) Other No pertinent family history - Tobacco History Second Hand Smoke Exposure: No Tobacco Use In Past 30 Days: No Smoking Status: Former smoker Tobacco Type: Cigarettes - Alcohol History How Often Do You Have a Drink Containing Alcohol: Monthly or less - Substance Use History Substance History: No History of Abuse - Travel History Recent Travel in the [place] Within the Last 8 Weeks: No Recent Travel Out of the Country Within the Last 8 Weeks: No - Immunization History Tetanus Immunization: Unsure Medications and Allergies Active Medications: Active Medications Dextrose (D50w Vial) 50 ml IV.PUSH UNSCH PRN PRN Reason: PER HYPOGLYCEMIA PROTOCOL Glucagon (Glucagon Inj) 1 mg OTHER PRN PRN PRN Reason: for Hypoglycemia Protocol Sodium Chloride (Ns Inj) 1,000 mls @ 100 mls/hr IV.CONT .Q10H BLAKE Insulin Aspart (Novolog Insulin Correctional Sugar Inj) 0 unit SQ ACHS BLAKE; Protocol Lorazepam (Ativan) 1 mg PO DAILY [facility] Morphine Sulfate (Morphine Inj) 2 mg IV.PUSH Q4H PRN PRN Reason: pain 1-10 Non-Formulary Medication (Leflunomide [Leflunomide]) 20 mg PO DAILY [facility] Pravastatin Sodium (Pravachol) 40 mg PO DAILY [facility] Sertraline HCl (Zoloft) 50 mg PO DAILY [facility] Tamsulosin HCl (Flomax) 0.4 mg PO DAILY [facility] Allergies Allergy/AdvReac Type Severity Reaction Status Date / Time No Known Allergies Allergy Verified 06/22/18 13:22 Home Medications Medication Instructions Recorded Confirmed Type aspirin 81 mg PO DAILY 06/22/18 07/17/18 History leflunomide 20 mg PO DAILY 06/22/18 07/17/18 History lorazepam [Ativan] 1 mg PO DAILY 06/22/18 07/17/18 History metformin 500 mg PO DAILY 06/22/18 07/17/18 History methotrexate sodium 20 mg PO QWEEK 06/22/18 07/17/18 History pravastatin 40 mg PO DAILY 06/22/18 07/17/18 History sertraline 50 mg PO DAILY 06/22/18 07/17/18 History tamsulosin 0.4 mg PO DAILY 06/22/18 07/17/18 History Exam Vital signs: Vital Signs 07/17/18 08:24 07/17/18 08:27 07/17/18 09:25 Temperature 98.6 F Pulse Rate 70 65 Respiratory Rate 17 17 Blood Pressure 184/81 H Pulse Oximetry 100 100 100 07/17/18 10:17 Temperature Pulse Rate Respiratory Rate Blood Pressure Pulse Oximetry 97 Intake & Output 07/16/18 07/17/18 07/17/18 18:59 06:59 18:59 Weight 95.254 kg Other: Weight On Admission 95.254 kg Narrative: Awake, alert, no acute distress Normocephalic Pupils equal No JVD Moist mucous membranes Nonlabored respirations Soft nontender abdomen Regular rate Right upper extremity: No tenderness to palpation or visible deformities. Full active range of motion and strength throughout. Sensation intact. Brisk cap refill. Left upper extremity:No tenderness to palpation or visible deformities. Full active range of motion and strength throughout. Sensation intact. Brisk cap refill. Right lower extremity: No tenderness to palpation or visible deformities. Full active range of motion and strength throughout. Sensation intact. Brisk cap refill. Left lower extremity: Shortened leg. Pain with range of motion of the left hip and knee. Patient appears neurovascularly intact distally with positive EHL and FHL. Sensation appears intact. Brisk cap refill. No rash Normal affect Results - Labs Result Diagrams: 07/17/18 10:20 07/17/18 10:20 Labs: Laboratory Results - last 24 hr 07/17/18 07/17/18 07/17/18 10:20 10:20 10:20 WBC 5.2 RBC 4.36 L Hgb 13.6 Hct 40.3 MCV 92.4 MCH 31.2 MCHC 33.7 RDW 14.9 Plt Count 169 MPV 8.8 Neut % (Auto) 72.4 H Lymph % (Auto) 14.5 Cata[place] % (Auto) 10.4 H Eos % (Auto) 1.4 Baso % (Auto) 1.3 Neut # (Auto) 3.8 Lymph # (Auto) 0.8 L [place] # (Auto) 0.5 Eos # (Auto) 0.1 Baso # (Auto) 0.1 WBC Differential . Differential Comment Auto diff final PT 10.7 INR 1.1 APTT 29.4 Sodium 143 Potassium 3.7 Chloride 110 H Carbon Dioxide 26.3 Anion Gap 7 BUN 14 Creatinine 0.89 Estimated GFR 85 L Random Glucose 96 Calcium 8.5 - Diagnostic results Imaging: Impressions Hip X-Ray 07/17/18 08:29 CONCLUSION: Posterior superior dislocation of the femoral head component out of the acetabular cup. Assessment and Plan - Assessment and Plan 68-year-old gentleman with recurrent left total hip arthroplasty dislocations Radiographs reviewed by myself and with my partner, Dr. Melendez. Patient does have a recurrent dislocated left total hip arthroplasty with constrained liner with metal constrained liner dislocated as well. I discussed options of management with the patient. I discussed the possibility of an attempted closed reduction in the operating room, however, my concern is given the displaced metal liner it is highly unlikely I will not be able to reduce this by closed means. Certainly, given the patient's multiple dislocations he is a candidate for revision total hip arthroplasty with at the very least a liner exchange and possible revision of the cup and/or stem. With this in mind, I will defer to Dr. Melendez for definitive treatment with open reduction and revision left total hip arthroplasty. Risks, benefits, alternatives were discussed with the patient and his . Patient can eat and drink at this time until midnight with n.p.o. after midnight for plan for surgery tomorrow with Dr. Melendez. Risks of surgery including but not limited to: Infection, persistent instability and/or dislocations, periprosthetic fracture, possible need for further surgery, neurovascular injury, heterotopic ossification, hip stiffness and/or pain, and other unforeseen complications were all discussed with the patient and his . Plan is for surgery tomorrow for left hip revision arthroplasty. We will obtain CRP and ESR today as well.
[2018-07-17] MEDS ORDERED: HYDROmorphone PF Inj 1 MG/ML Ampul ONE (14:11)
[2018-07-17] MEDS: Morphine Inj 4 MG/ML Vial IV.PUSH PRN ×2 (15:39→19:54)
[2018-07-17] MEDS: Insulin NovoLOG Aspart Correctional Sugar Inj SQ SCH ×2 (18:00→20:04)
[2018-07-17] MEDS ORDERED: Sodium Chloride 0.9% 2 ML Flush PRN IV.FLUSH ×2 (19:02→22:54)
[2018-07-17] MEDS: LORazepam 0.5 MG Tablet PO PRN (19:10)
[2018-07-17] MEDS: Sodium Chloride 0.9% 2 ML Flush BID IV.FLUSH SCH (20:04)
[2018-07-17] MEDS ORDERED: Chlorhexidine Gluconate 2% 1 Pack (2 Cloths) TOPICAL ONE ×2 (22:34→22:46)
[2018-07-17] MEDS ORDERED: Metoprolol Tartrate 25 MG Tablet PO SCH (22:46)
[2018-07-17] MEDS ORDERED: Sodium Chlor 0.9% Inj 500 ML IV.SIG SCH (23:00)
[2018-07-18] MEDS: Morphine Inj 4 MG/ML Vial IV.PUSH PRN ×3 (00:24→21:46)
[2018-07-18] MEDS: LORazepam 0.5 MG Tablet PO PRN ×3 (03:07→23:07)
[2018-07-18] MEDS ORDERED: Ibuprofen 400 MG Tablet PO ONE (04:53)
--- NOTE | 2018-07-18 07:28 | P.PNOP ---
Subjective Interval history: Mati has recurrent left hip dislocation. He has had multiple previous surgeries by Dr. Gomez for left hip replacement and revisions. He has had multiple dislocations. Physical Exam Vital signs: Vital Signs 07/17/18 08:24 07/17/18 08:27 07/17/18 09:25 Temperature 98.6 F Pulse Rate 70 65 Respiratory Rate 17 17 Blood Pressure 184/81 H Pulse Oximetry 100 100 100 07/17/18 10:17 07/17/18 16:00 07/17/18 20:28 Temperature 97.9 F 97.7 F Pulse Rate 58 L 69 Respiratory Rate 18 18 Blood Pressure 166/92 H 175/77 H Pulse Oximetry 97 98 97 07/17/18 23:43 07/18/18 03:35 Temperature 98 F 97.9 F Pulse Rate 63 64 Respiratory Rate 18 18 Blood Pressure 170/77 H 172/88 H Pulse Oximetry 97 100 Intake & Output 07/17/18 07/18/18 07/18/18 18:59 06:59 18:59 Intake Total 720 / 720 Output Total 725 / 725 Balance -5 / -5 Weight 95.254 kg 95.254 kg Intake: Oral 720 / 720 Output: Urine 725 / 725 Other: # Voids 1 Date of Last Bowel Movement 07/17/18 Weight On Admission 95.254 kg Narrative: Patient is awake and alert. He appears well-developed well-nourished. He has pain with any hip motion. Left leg is shortened. He is able to actively flex and extend his foot. Sensation is intact in left foot. Results - Labs CBC & Chem 7: 07/17/18 10:20 07/17/18 10:20 Laboratory Results - last 24 hr 07/17/18 07/17/18 07/17/18 10:20 10:20 10:20 WBC 5.2 RBC 4.36 L Hgb 13.6 Hct 40.3 MCV 92.4 MCH 31.2 MCHC 33.7 RDW 14.9 Plt Count 169 MPV 8.8 Neut % (Auto) 72.4 H Lymph % (Auto) 14.5 Ellis % (Auto) 10.4 H Eos % (Auto) 1.4 Baso % (Auto) 1.3 Neut # (Auto) 3.8 Lymph # (Auto) 0.8 L Ellis # (Auto) 0.5 Eos # (Auto) 0.1 Baso # (Auto) 0.1 WBC Differential . Differential Comment Auto diff final ESR PT 10.7 INR 1.1 APTT 29.4 Sodium 143 Potassium 3.7 Chloride 110 H Carbon Dioxide 26.3 Anion Gap 7 BUN 14 Creatinine 0.89 Estimated GFR 85 L POC Glucose Random Glucose 96 Calcium 8.5 C-Reactive Protein 07/17/18 07/17/18 07/17/18 16:15 16:15 17:28 WBC RBC Hgb Hct MCV MCH MCHC RDW Plt Count MPV Neut % (Auto) Lymph % (Auto) Ellis % (Auto) Eos % (Auto) Baso % (Auto) Neut # (Auto) Lymph # (Auto) Ellis # (Auto) Eos # (Auto) Baso # (Auto) WBC Differential Differential Comment ESR 11 PT INR APTT Sodium Potassium Chloride Carbon Dioxide Anion Gap BUN Creatinine Estimated GFR POC Glucose 94 Random Glucose Calcium C-Reactive Protein Less than 0.29 07/17/18 20:00 WBC RBC Hgb Hct MCV MCH MCHC RDW Plt Count MPV Neut % (Auto) Lymph % (Auto) Ellis % (Auto) Eos % (Auto) Baso % (Auto) Neut # (Auto) Lymph # (Auto) Ellis # (Auto) Eos # (Auto) Baso # (Auto) WBC Differential Differential Comment ESR PT INR APTT Sodium Potassium Chloride Carbon Dioxide Anion Gap BUN Creatinine Estimated GFR POC Glucose 130 H Random Glucose Calcium C-Reactive Protein - Imaging Impressions Hip X-Ray 07/17/18 08:29 CONCLUSION: Posterior superior dislocation of the femoral head component out of the acetabular cup. Assessment and Plan - Assessment and Plan Mati is a 68-year-old gentleman with recurrent left total hip arthroplasty dislocations. He has a very complicated problem. The cup and the stem appeared to be well fixed. The hip was dislocated with a constrained liner on more than 2 occasions. Radiographic review shows that the acetabular shell has minimal anteversion. I discussed with him surgical options including closed reduction with manipulation of the hip, open reduction with replacement of the constrained liner, versus complete hip revision with removal of the acetabular shell and possible removal of the femoral component. Given his multiple surgeries and multiple dislocations, he is at high risk of developing further dislocation in the future. The risk and benefits of surgery were discussed in depth with patient. All questions were answered. The risk and benefits of surgery were discussed in depth with patient. The risk of surgery include bleeding, infection, injuries to arteries, nerves, or blood vessels, infection, wound complications, leg length discrepancy, hip dislocation, sciatic nerve injury, foot drop, trochanteric bursitis, painful hardware, and need for further surgery. I also discussed medical complications including blood clots, pneumonia, stroke, heart attack, and . Informed consent was obtained and all questions were answered. N.p.o.--plan on surgery this morning Calcium and vitamin D supplementation Physical therapy consult--CKS at all times, abduction pillow when patient in bed Follow-up with Dr. Melendez in 2 weeks SCDs, Luci Hastings A mid-level provider in my office (nurse practitioner or physician nutritional assistant) may see this patient on follow-up visits and continue to implement the objectives of this plan including: Starting or adjusting medications, injections , cast application, orthotics, brace application, physical therapy, radiological studies (including x-ray, MRI, CT, ultrasound, bone scan), vascular studies, neurologic studies, specialist consultation, and proceeding with surgical management, as appropriate.
[2018-07-18] MEDS ORDERED: Tranexamic Acid Inj 1,400 MG in Sodium Chlor 0.9% Inj 100 ML IV.SIG ONE (07:53)
[2018-07-18] MEDS ORDERED: Bupivacaine Liposomal PF 1.3% Inj 20 ML Vial INFILTRATN ONE (07:56)
--- NOTE | 2018-07-18 08:11 | P.PNIM ---
Subjective Interval history: f/u; hip dislocation in no acute distress. had some anxiety last night which improved with Ativan. pain is controlled. no new complaints. d/w the RN at the bedside. Physical Exam Vital signs: Vital Signs 07/17/18 08:24 07/17/18 08:27 07/17/18 09:25 Temperature 98.6 F Pulse Rate 70 65 Respiratory Rate 17 17 Blood Pressure 184/81 H Pulse Oximetry 100 100 100 07/17/18 10:17 07/17/18 16:00 07/17/18 20:28 Temperature 97.9 F 97.7 F Pulse Rate 58 L 69 Respiratory Rate 18 18 Blood Pressure 166/92 H 175/77 H Pulse Oximetry 97 98 97 07/17/18 23:43 07/18/18 03:35 Temperature 98 F 97.9 F Pulse Rate 63 64 Respiratory Rate 18 18 Blood Pressure 170/77 H 172/88 H Pulse Oximetry 97 100 Intake & Output 07/17/18 07/18/18 07/18/18 18:59 06:59 18:59 Intake Total 720 / 720 Output Total 725 / 725 Balance -5 / -5 Weight 95.254 kg 95.254 kg Intake: Oral 720 / 720 Output: Urine 725 / 725 Other: # Voids 1 Date of Last Bowel Movement 07/17/18 Weight On Admission 95.254 kg - Constitutional no acute distress - Routine Respiratory Exam Present: CTA bilaterally - Routine Cardiovascular Exam Present: RRR - Routine Abdominal Exam Present: soft - Routine Extremities Exam Comments: no pedal edema. - Routine Neurological Exam Present: alert, oriented X3 Results - Labs CBC & Chem 7: 07/17/18 10:20 07/17/18 10:20 Laboratory Results - last 24 hr 07/17/18 07/17/18 07/17/18 10:20 10:20 10:20 WBC 5.2 RBC 4.36 L Hgb 13.6 Hct 40.3 MCV 92.4 MCH 31.2 MCHC 33.7 RDW 14.9 Plt Count 169 MPV 8.8 Neut % (Auto) 72.4 H Lymph % (Auto) 14.5 [place] % (Auto) 10.4 H Eos % (Auto) 1.4 Baso % (Auto) 1.3 Neut # (Auto) 3.8 Lymph # (Auto) 0.8 L [place] # (Auto) 0.5 Eos # (Auto) 0.1 Baso # (Auto) 0.1 WBC Differential . Differential Comment Auto diff final ESR PT 10.7 INR 1.1 APTT 29.4 Sodium 143 Potassium 3.7 Chloride 110 H Carbon Dioxide 26.3 Anion Gap 7 BUN 14 Creatinine 0.89 Estimated GFR 85 L POC Glucose Random Glucose 96 Calcium 8.5 C-Reactive Protein 07/17/18 07/17/18 07/17/18 16:15 16:15 17:28 WBC RBC Hgb Hct MCV MCH MCHC RDW Plt Count MPV Neut % (Auto) Lymph % (Auto) [place] % (Auto) Eos % (Auto) Baso % (Auto) Neut # (Auto) Lymph # (Auto) [place] # (Auto) Eos # (Auto) Baso # (Auto) WBC Differential Differential Comment ESR 11 PT INR APTT Sodium Potassium Chloride Carbon Dioxide Anion Gap BUN Creatinine Estimated GFR POC Glucose 94 Random Glucose Calcium C-Reactive Protein Less than 0.29 07/17/18 07/18/18 20:00 08:01 WBC RBC Hgb Hct MCV MCH MCHC RDW Plt Count MPV Neut % (Auto) Lymph % (Auto) [place] % (Auto) Eos % (Auto) Baso % (Auto) Neut # (Auto) Lymph # (Auto) [place] # (Auto) Eos # (Auto) Baso # (Auto) WBC Differential Differential Comment ESR PT INR APTT Sodium Potassium Chloride Carbon Dioxide Anion Gap BUN Creatinine Estimated GFR POC Glucose 130 H 123 H Random Glucose Calcium C-Reactive Protein - Imaging Impressions Hip X-Ray 07/17/18 08:29 CONCLUSION: Posterior superior dislocation of the femoral head component out of the acetabular cup. Assessment and Plan - Plan A/P - dislocated left hip closed reduction was attempted in ER which was not successful- ortho was consulted; for ortho intervention today- continue with pain control. -diabetes mellitus; hold Metformin- start on accu-check with SSI -psoriatic arthritis; resume home meds -elevated BP's- due to anxiety/ pain- clonidine prn for now- continue to monitor. -DVT prophylaxis; pending ortho intervention. Discharge Planning: when cleared by ortho.
[2018-07-18] MEDS ORDERED: Sugammadex Inj 200 MG/2 ML Vial IV.PUSH ONE (08:19)
[2018-07-18] MEDS ORDERED: Non-Formulary Drug (Leflunomide [Leflunomide] 20 MG) PO SCH ×2 (09:00)
[2018-07-18] MEDS ORDERED: Sodium Chloride 0.9% 2 ML Flush BID IV.FLUSH SCH (09:00)
[2018-07-18] MEDS ORDERED: PT:LEFLUNOMIDE 20 MG PO SCH (09:00)
[2018-07-18] MEDS ORDERED: LORazepam 1 MG Tablet PO SCH (09:00)
[2018-07-18] MEDS ORDERED: Bupivacaine/Epinephrine PF Inj 0.5% 10 ML Vial ONE (09:17)
[2018-07-18] MEDS: Tobramycin Sulfate 1,200 MG Vial (for ortho/sterile core) OTHER ONE ×2 (12:05→18:53)
[2018-07-18] MEDS ORDERED: Bisacodyl 10 MG Supp RECTAL PRN (12:19)
[2018-07-18] MEDS ORDERED: Post-op Orders (for Pharmacy) OTHER STA (12:19)
--- NOTE | 2018-07-18 12:37 | P.OP ---
- Preoperative Diagnosis (1) Failed total hip arthroplasty with dislocation (2) Dislocation of hip, left, closed Date of procedure: 07/18/18 Procedure: Manipulation of left hip under anesthesia with closed reduction, revision of left total hip arthroplasty Anesthesia: IVON Surgeon: Jimbo Huddleston MD Crystalizer Operator: Corky Rojas PA-C The surgical procedure was assisted by my physician commercial assistant. My P.A. presence was necessary throughout this case for the manipulation and positioning of the surgical extremity. My P.A. was assisting me throughout the duration of this procedure. The skill set of a physician commercial assistant was medically necessary to complete this procedure. During the surgical case the surgical supervisor was working at the back table and the physician commercial assistant was directly assisting me. Operation and Findings: Plan of activity: 50% weightbearing with strict posterior hip precautions IMPLANTS USED size [54] Herculaneum Gription cup, Altryx +4 10 degree 54/36 liner, and a [36+15 metal] head. DETAILS OF PROCEDURE: Mati has a complex history regarding his left total hip. He had hip replacement surgery approximately 3 years ago. He has had multiple dislocations. He was revised to a constrained liner. He has had repeat dislocation of the constrained liner. I had a lengthy discussion with patient preoperatively regarding treatment options. I discussed with him possible revision of the liner versus revision of the total hip arthroplasty. The risk and benefits of surgery were discussed in depth with patient. All questions were answered. Patient was brought to OR and placed on OR table. IV sedation and general anesthesia was administered by anesthesiologist. He was given IV antibiotics. Time-out procedure was performed. Procedure began with examination of the left total hip under fluoroscopy. With the patient in supine position the hip was manipulated. The acetabular shell appeared to be in neutral anteversion. The knee was held in a neutral position. The femoral stem was visualized under multiplanar fluoroscopy. The stem appeared to be in approximately 15 degrees of anteversion. The hip was manipulated. Attempted closed reduction was performed. I was able to place the femoral head into the opening of the constrained liner. The head would not seat past the constrained opening of the liner. Decision was made to proceed with open revision of total hip. The operative hip and leg were prepped with alcohol followed by Hibiclens and draped in the usual sterile fashion. Clean Air Suite was used for this procedure. The procedure began with a 10-inch incision over the posterolateral thigh through previous scar. A portion of the previous scar was excised.. Subcutaneous tissue was dissected with Bovie. The fascia of the iliotibial band was incised. Gluteus muscle was split in line with fibers. Charnley retractor was placed. The hip capsule and external rotators were completely disrupted from his multiple dislocations. At this point the femoral head was removed from the stem using an osteotome and mallet. The acetabulum is now exposed. Scar tissue was incised around the edge of the acetabulum. The constrained liner was disrupted from dislocation. Using osteotomes the liner was now removed from the shell. Because of the lack of anteversion of the shell decision was made to revise the hip. The screw was removed from the acetabular shell. Using the Innomed acetabular shell osteotomes the acetabular shell was gently loosened. Care was taken to avoid any significant bone loss. Once the shell was loosened it was fully removed. At this point the acetabulum was sequentially reamed appropriately. The original shell was size 58. This appeared to be significantly oversized for his acetabulum. A 54 reamer was now placed in the acetabulum. The acetabulum was reamed medially. Good coverage was obtained. Care was taken to maintain appropriate version. A trial cup was placed and was found to be a good fit. There were multiple large osteophytes along the anterior rim of the acetabulum. These were carefully removed using an osteotome and rongour. At this point a trial liner was placed into the trial shell. A +5 head was placed onto the stem. The hip was reduced. Patient had instability with range of motion. Clinically he appeared to be significantly short. Multiple trial heads were placed. A trial +15 head was placed. Clinically the leg lengths appeared to be equal. The hip was extremely stable with his head. Using radiographs of the surgical and nonsurgical hip the leg lengths appeared to be equal as well. At this point the trial cup and shell were removed. A size 54 Herculaneum cup was now fully impacted into the acetabulum and found to have excellent fit. Care was taken to maintain appropriate tilt and anteversion of the shell. Hole eliminator was now placed. A screw was now placed into the the dome of the acetabulum for additional stability. The liner was now impacted into the cup. Next the size 36+15 femoral head was opened and impacted onto the stem. The hip was again reduced. Patient was placed through range of motion. Patient had good stability through range of motion. He had equal leg lengths clinically. The wound was thoroughly irrigated. Hip capsule, external rotators, and iliotibial band was closed with #1 Vicryl. A drain was placed deep into the wound. Subcutaneous tissue was closed with 3-0 Vicryl and the skin was closed with gerry and Dermabond skin closure. The capsule layers were injected with a mixture of saline and bupivicaine. Dressings were applied. The patient was transferred to Recovery Room in stable condition.
[2018-07-18] MEDS ORDERED: ceFAZolin Inj 2,000 MG in Sodium Chlor 0.9% Inj 80 ML IV.SIG SCH (13:00)
[2018-07-18] MEDS ORDERED: Vancomycin Inj 1 GM/200 ML PIGGYBACK IV.SIG SCH (13:00)
[2018-07-18] MEDS ORDERED: fentaNYL Citrate Inj 100 MCG/2 ML Ampul ONE (13:29)
--- NOTE | 2018-07-18 14:06 | XR ---
EXAM DATE: 07/18/2018 2:02 PM EST AGE/SEX: 68 years / Male INDICATIONS: Post op left hip surgery. CLINICAL DATA: This is the patient's initial encounter. Patient reports that signs and symptoms have been present for 1 day and indicates a pain score of Nonresponsive. MEDICAL/SURGICAL HISTORY: . Chronic left hip dislocations. . Left total hip arthroplasty. COMPARISON: [facility] [place] W AP PELVIS 2V, 07/17/2018. . FINDINGS: The patient is status post a total hip arthroplasty. Prosthesis is well-seated. Alignment is anatomic . A fracture is not appreciated. CONCLUSION: Anatomic alignment. Jorden Lester MD FACR : Electronically signed by: Jorden Lester MD 07/18/2018 2:05 PM EST
[2018-07-18] MEDS: Calcium/Vitamin D 250/125 MG Tablet PO SCH ×2 (14:09→18:00)
--- NOTE | 2018-07-18 15:55 | P.PNOP ---
Subjective Interval history: POD 0 s/p revision left total hip stable in pacu Physical Exam Vital signs: Vital Signs 07/17/18 16:00 07/17/18 20:28 07/17/18 23:43 Temperature 97.9 F 97.7 F 98 F Pulse Rate 58 L 69 63 Respiratory Rate 18 18 18 Blood Pressure 166/92 H 175/77 H 170/77 H Pulse Oximetry 98 97 97 07/18/18 03:35 07/18/18 08:00 07/18/18 12:54 Temperature 97.9 F 98.3 F 98.0 F Pulse Rate 64 62 63 Respiratory Rate 18 18 6 L Blood Pressure 172/88 H 159/72 H 161/72 H Pulse Oximetry 100 97 96 07/18/18 13:00 07/18/18 13:15 07/18/18 13:30 Temperature Pulse Rate 61 64 66 Respiratory Rate 12 14 15 Blood Pressure 138/67 139/69 165/69 H Pulse Oximetry 100 100 100 07/18/18 13:45 07/18/18 14:00 07/18/18 14:15 Temperature 98.0 F Pulse Rate 58 L 61 62 Respiratory Rate 14 16 18 Blood Pressure 152/80 H 142/70 H 158/78 H Pulse Oximetry 100 98 100 Intake & Output 07/17/18 07/18/18 07/18/18 18:59 06:59 18:59 Intake Total 720 / 720 Output Total 725 / 725 150 / 150 Balance -5 / -5 -150 / -150 Weight 95.254 kg 95.254 kg Intake: Oral 720 / 720 Output: Urine 725 / 725 Urine Amount (Catheter) 150 / 150 Indwelling Urethral Catheter 150 / 150 Other: # Voids 1 Date of Last Bowel Movement 07/17/18 07/17/18 Weight On Admission 95.254 kg Narrative: LLE: dressing clean and dry. intact. +CKS. +abduction pillow - Urinary Catheter Management Indwelling Urethral Catheter Cath placed during this visit: no Results - Labs CBC & Chem 7: 07/17/18 10:20 07/17/18 10:20 Laboratory Results - last 24 hr 07/17/18 07/17/18 07/17/18 16:15 16:15 17:28 ESR 11 POC Glucose 94 C-Reactive Protein Less than 0.29 Blood Type Blood Type Recheck Antibody Screen 07/17/18 07/18/18 07/18/18 20:00 08:01 10:15 ESR POC Glucose 130 H 123 H C-Reactive Protein Blood Type A Positive Blood Type Recheck Not needed Antibody Screen Negative Microbiology 07/18/18 12:00 Tissue - Hip Fungal Smear - Final No fungal elements seen 07/18/18 12:00 Tissue - Hip Gram Stain - Final - Imaging Impressions Hip X-Ray 07/18/18 00:00 CONCLUSION: Anatomic alignment. Jorden Lester MD FACR : Assessment and Plan - Assessment and Plan 1) Left Total Hip revision - POD 0 -50%WB -strict posterior hip precautions -knee brace at all times -abduction pillow when in bed -daily dressing changes POD 2 with primapore. -CM for DC planning. home with C vs rehab -scripts on chart -DVT prophylaxis -f/u with Nora or FRIEDA in 2 weeks [facility] Prescription Drug Monitoring Database has been queried and verified prior to prescribing the controlled substance. Acute pain exception. This patient has normal, predicted, physiological, and time limited response to an adverse mechanical stimulus associated with surgery, trauma, or acute illness as described in my notes. There is a lack of alternative treatment options other than to include the prescribed narcotic treatment for this condition.
--- NOTE | 2018-07-18 15:56 | P.DCO ---
- Physical Therapy Physical Therapy: Gait training, Safety evaluation Hip: Total hip, Protocol: Left, Posterior hip precautions (knee brace at all times), Abduction pillow while in bed Canvas Knee Splint: At all times Left Lower Extremity Weight Bearing: Partial weight bearing 50% - Nursing Dressing changes: Daily dressing change, Coverderm/Primapore (add xeroform POD 10) - Certification Need for Home Health services: I have seen patient Mati Whitley on 07/18/18. My clinical findings support the need for the requested home health care services because: Need for Home Health Services: Limited mobility due to disease progression Homebound Certification: I certify that my clinical findings support that this patient is homebound because: Homebound Certification: Post-op weakness
[2018-07-18] MEDS: ceFAZolin 2 GM Premix Inj 2 GM/50 ML PIGGYBACK IV.SIG SCH (18:01)
[2018-07-18] MEDS: Insulin NovoLOG Aspart Correctional Sugar Inj SQ SCH ×3 (18:40→20:01)
[2018-07-18] MEDS: Sodium Chloride 0.9% 2 ML Flush BID IV.FLUSH SCH ×2 (18:49→20:01)
[2018-07-18] MEDS: Sertraline 50 MG Tablet PO SCH (18:56)
[2018-07-18] MEDS: Sodium Chlor 0.9% Inj 500 ML IV.SIG SCH (19:34)
[2018-07-18] MEDS: Sod Chloride 0.9% Inj 1,000 ML IV.CONT SCH (19:46)
[2018-07-18] MEDS: Senna/Docusate Sodium 8.6/50 MG Tablet PO SCH (20:00)
[2018-07-18] MEDS: Vancomycin Inj 1,000 MG in Sodium Chlor 0.9% Inj 250 ML IV.SIG SCH (21:50)
[2018-07-19] MEDS: Morphine Inj 4 MG/ML Vial IV.PUSH PRN (01:06)
[2018-07-19] MEDS: ceFAZolin 2 GM Premix Inj 2 GM/50 ML PIGGYBACK IV.SIG SCH ×3 (01:06→17:59)
[2018-07-19] MEDS: Sod Chloride 0.9% Inj 1,000 ML IV.CONT SCH ×2 (04:15→18:48)
[2018-07-19 04:47] LABS: Hemoglobin 11.4 gm/dL (13.0-17.0)
[2018-07-19] MEDS: LORazepam 0.5 MG Tablet PO PRN ×2 (08:27→18:06)
[2018-07-19] MEDS: Celecoxib 200 MG Capsule PO SCH (08:31)
[2018-07-19] MEDS: Senna/Docusate Sodium 8.6/50 MG Tablet PO SCH ×2 (08:31→21:33)
[2018-07-19] MEDS: Calcium/Vitamin D 250/125 MG Tablet PO SCH ×3 (08:31→17:59)
[2018-07-19] MEDS: Sertraline 50 MG Tablet PO SCH (08:31)
[2018-07-19] MEDS: Insulin NovoLOG Aspart Correctional Sugar Inj SQ SCH ×4 (08:37→21:33)
[2018-07-19] MEDS: Sodium Chloride 0.9% 2 ML Flush BID IV.FLUSH SCH ×2 (08:56→21:34)
[2018-07-19] MEDS: Vancomycin Inj 1,000 MG in Sodium Chlor 0.9% Inj 250 ML IV.SIG SCH (09:44)
[2018-07-19] MEDS ORDERED: Rivaroxaban 10 MG Tablet PO SCH (12:00)
--- NOTE | 2018-07-19 14:08 | P.PNIM ---
Subjective Interval history: Follow up left hip dislocation Patient is resting in bed. He states he sat up in a chair for 6 hours today. He denies pain to his left hip. (+) flatus, no BM yet. No shortness of breath or chest discomfort. Tolerating diet. Patient wanting to go home with . Physical Exam Vital signs: Last Vital Signs Temp 98.0 F 07/19/18 12:00 Pulse 62 07/19/18 12:00 Resp 18 07/19/18 12:00 BP 169/69 H 07/19/18 12:00 Pulse Ox 98 07/19/18 12:00 Intake & Output 07/17/18 07/18/18 07/19/18 07/20/18 06:59 06:59 06:59 06:59 Intake Total 720 / 720 1350 / 1350 300 / 300 Output Total 725 / 725 2800 / 2800 200 / 200 Balance -5 / -5 -1450 / -1450 100 / 100 Weight 95.254 kg 94.6 kg Narrative: GENERAL: no acute distress SKIN: Warm and dry. HEAD: Normocephalic. EYES: No scleral icterus. No injection or drainage. NECK: Supple, trachea midline. No JVD or lymphadenopathy. CARDIOVASCULAR: Regular rate and rhythm without murmurs, gallops, or rubs. RESPIRATORY: Breath sounds equal bilaterally. No accessory muscle use. GASTROINTESTINAL: Abdomen soft, non-tender, nondistended. MUSCULOSKELETAL: No cyanosis. LLE dressing clean and dry. Urinary Catheter Management Indwelling Urethral Catheter: Cath placed during this visit: yes, but has since been removed by the nurse Removal date: 07/19/18 Removal time: 04:20 Results Labs CBC & Chem 7: 07/19/18 04:15 07/17/18 10:20 Labs: Microbiology 07/18/18 12:00 Tissue - Hip Gram Stain - Final 07/18/18 12:00 Tissue - Hip Wound Culture - Preliminary No growth in 24 hours 07/18/18 12:00 Tissue - Hip Fungal Smear - Final No fungal elements seen Imaging Imaging: Impressions Hip X-Ray 07/18/18 00:00 CONCLUSION: Anatomic alignment. Jorden Lester MD FACR : Assessment and Plan (1) Dislocation of hip, left, closed: Code(s): S73.005A - Unspecified dislocation of left hip, initial encounter Status: Acute (2) Failed total hip arthroplasty with dislocation: Code(s): T84.028A - Dislocation of other internal joint prosthesis, initial encounter; Z96.649 - Presence of unspecified artificial hip joint Status: Acute Plan Patient is a 68 year old male with a past medical history significant for recurrent dislocated left hip, psoriatic arthritis, and diabetes mellitus. He presented with left sided hip pain. He noted that his hip was dislocated when attempting to put on his pants earlier in the day. Dislocated left hip s/p total hip revision - POD 1 -closed reduction was attempted in ED but unsuccessful -Orthopedic surgery consulted -s/p left total hip revision 07/18/18 -pain control -knee brace at all times -50% weight bearing, abduction pillow when in bed -dressing changes POD with primapore Diabetes mellitus - controlled -accuchecks ac/hs, ssi -ADA diet Psoriatic arthritis -continue home meds Elevated blood pressure 2/2 anxiety/pain - SBP 160's -continue to monitor closely -if no improvement, initiate b/p meds MDM: self Code: Full GI ppx: PO intake DVT ppx: Xarelto Discussed Condition With: RN, patient Discharge Planning: Home with HH with fpc and PT eval/treat Progress Note: Quality VTE Deep Vein Thrombosis/Pulmonary Embolism Present on Admission: No _ (1) Dislocation of hip, left, closed Qualifiers: Encounter type:
[2018-07-19] MEDS: Sodium Chlor 0.9% Inj 500 ML IV.SIG SCH (14:12)
--- NOTE | 2018-07-19 15:28 | P.PNOP ---
Subjective Interval history: Patient comfortable. Pain controlled. Physical Exam Vital signs: Vital Signs 07/18/18 16:00 07/18/18 20:00 07/18/18 21:46 Temperature 98.0 F 97.7 F Pulse Rate 60 66 Respiratory Rate 18 18 18 Blood Pressure 141/65 H 163/79 H Pulse Oximetry 99 100 07/18/18 21:51 07/18/18 23:51 07/19/18 00:00 Temperature 97.6 F Pulse Rate 60 Respiratory Rate 17 18 18 Blood Pressure 151/67 H Pulse Oximetry 99 07/19/18 01:21 07/19/18 04:00 07/19/18 05:12 Temperature 97.8 F Pulse Rate 58 L Respiratory Rate 17 17 18 Blood Pressure 125/61 Pulse Oximetry 99 07/19/18 08:00 07/19/18 12:00 Temperature 97.4 F L 98.0 F Pulse Rate 68 62 Respiratory Rate 20 18 Blood Pressure 176/82 H 169/69 H Pulse Oximetry 93 L 98 Intake & Output 07/18/18 07/19/18 07/19/18 18:59 06:59 18:59 Intake Total 1050 / 1050 300 / 300 1300 / 1300 Output Total 650 / 650 2150 / 2150 200 / 200 Balance 400 / 400 -1850 / -1850 1100 / 1100 Weight 94.6 kg Intake: IV 50 / 50 300 / 300 1300 / 1300 LR 1000 mL Inj 1,000 ML @ 50 1000 / 1000 mls/hr IV.CONT .Q20H BLAKE Rx#: [id number] Vancomycin Inj 1,000 MG In NS 250 / 250 250 / 250 Inj 250 ML @ 250 mls/hr IV.SIG Q12H BLAKE Rx#:[id number] Ancef 2 GM Premix Inj 2 gm In 50 / 50 50 / 50 50 / 50 50 ml @ 100 mls/hr IV.SIG Q8H BLAKE Rx#:[id number] Anesthesia Amount 1000 / 1000 Output: Urine 200 / 200 Estimated Blood Loss 250 / 250 Urine Amount (Catheter) 400 / 400 2150 / 2150 Indwelling Urethral Catheter 400 / 400 2149 / 2150 Other: Date of Last Bowel Movement 07/17/18 07/17/18 07/17/18 Narrative: Left hip dressing C/D/I calves soft negative Homans knee immobilizer in place NVI - Urinary Catheter Management Indwelling Urethral Catheter Cath placed during this visit: yes, but has since been removed by the nurse Reason for continuing: Continue criteria not met Removal date: 07/19/18 Removal time: 04:20 Results - Labs CBC & Chem 7: 07/19/18 04:15 07/17/18 10:20 Laboratory Results - last 24 hr 07/18/18 07/18/18 07/19/18 15:43 19:41 04:15 Hgb 11.4 L D Hct 33.0 L POC Glucose 145 H 146 H 07/19/18 07/19/18 08:05 12:06 Hgb Hct POC Glucose 109 129 H Microbiology 07/18/18 12:00 Tissue - Hip Gram Stain - Final 07/18/18 12:00 Tissue - Hip Wound Culture - Preliminary No growth in 24 hours 07/18/18 12:00 Tissue - Hip Fungal Smear - Final No fungal elements seen Assessment and Plan - Problem List (1) Dislocation of hip, left, closed Code(s): S73.005A - Unspecified dislocation of left hip, initial encounter Status: Acute (2) Failed total hip arthroplasty with dislocation Code(s): T84.028A - Dislocation of other internal joint prosthesis, initial encounter; Z96.649 - Presence of unspecified artificial hip joint Status: Acute - Assessment and Plan 1) Left Total Hip revision - POD 1 -50%WB -strict posterior hip precautions -knee brace at all times -abduction pillow when in bed -daily dressing changes POD 2 with primapore. -CM for DC planning. Anticipating Home with [facility] Saturday -scripts on chart -DVT prophylaxis -f/u with Nora or FRIEDA in 2 weeks
--- NOTE | 2018-07-19 18:03 | ECG ---
Date Performed: 07/17/2018 Time Performed: 13:17:20 PTAGE: 68 years EKG: Sinus rhythm MARKED LEFT AXIS DEVIATION INTRAVENTRICULAR CONDUCTION DELAY POSSIBLE LATERAL MYOCARDIAL INFARCTION , OF INDETERMINATE AGE ABNORMAL ECG PREVIOUS TRACING : 02/24/2017 12.03 DOCTOR: Leslee Manley Interpretating Date/Time 07/19/2018 17:37:08
[2018-07-20] MEDS: Sod Chloride 0.9% Inj 1,000 ML IV.CONT SCH (02:01)
[2018-07-20] MEDS: Sodium Chlor 0.9% Inj 500 ML IV.SIG SCH (02:01)
[2018-07-20] MEDS: ceFAZolin 2 GM Premix Inj 2 GM/50 ML PIGGYBACK IV.SIG SCH ×2 (02:28→07:24)
[2018-07-20] MEDS: LORazepam 0.5 MG Tablet PO PRN (03:50)
[2018-07-20] MEDS: Celecoxib 200 MG Capsule PO SCH ×2 (07:25→09:45)
[2018-07-20] MEDS: Sertraline 50 MG Tablet PO SCH ×2 (07:26→09:46)
[2018-07-20] MEDS: Calcium/Vitamin D 250/125 MG Tablet PO SCH ×2 (07:26→09:45)
[2018-07-20] MEDS: Insulin NovoLOG Aspart Correctional Sugar Inj SQ SCH (07:38)
--- NOTE | 2018-07-20 07:55 | P.DS ---
DS: Providers Date of admission: 07/17/18 17:31 Primary care physician: Sherman Anderson MD Consults: 07/17/18 12:40 Consult to Orthopedic Surgery Routine Consulting Provider: Anne Gomez Reason for Consultation: dislocated hip Notified:: Office Spoke with:: SONAL Date Notified:: 07/17/18 Time Notified:: 12:47 Comments:: E53 Ordering Provider: BEAU 07/18/18 14:28 HUB Only Consult Order Routine Consulting Provider: [facility] Anticipated date of discharge: 07/20/18 Brief History from admission: patient is a 68 y/o male with history of recurrent dislocated hip, psoriatic arthritis, diabetes mellitus, who presented to ER with left hip pain. he says that earlier today when he was trying to out his pants on he just felt that his hip was dislocated after which he stared to have some pain. otherwise he denies any other symptoms. Patient update on day of discharge: Patient seen and examined at bedside. He states he is ready to go home. Home health care set up. No pain to left lower extremity at present time. Discussed bleeding precautions while on Xarelto, follow up information and ED precautions. DS: Diagnosis Discharge Diagnosis (1) Dislocation of hip, left, closed: Status: Acute (2) Failed total hip arthroplasty with dislocation: Status: Acute (3) Diabetes mellitus: Status: Acute (4) Psoriatic arthritis: Status: Acute DS: Summary Patient was seen in consultation by Fruit Culler Dr Melendez with recommendation to proceed with surgical intervention for his recurrent left total hip arthroplasty dislocations. After discussion of risks, benefits, vs alternatives with patient per Orthopedic Surgeon patient consented to undergo surgery. He underwent a successful left hip manipulation, closed reduction and left total hip arthroplasty on 07/18/18. Patient tolerated the procedure well. His pain was managed well with oral pain medications. Patient was educated on 50 % weight bearing to his left lower extremity. He was started on Xarelto for DVT prophylaxis. Patient was evaluated by physical therapy with recommendations to discharge Home with . Case management was consulted and assisted with arrangement. All required scripts were provided to the patient at time of discharge. Follow up instructions were reviewed. Discussed bleeding precautions with patient while on Xarelto. Patient was hemodynamically stable at time of discharge. Time Spent with Patient Total time spent providing and/or coordinating discharge services: Greater than 30 minutes Status at Discharge Functional status at discharge: uses cane/walker Overall status at discharge: patient is progressing back to baseline Quality: VTE Deep Vein Thrombosis/Pulmonary Embolism Present on Admission: No Exam Narrative Exam Narrative: GENERAL: no acute distress, well developed, well nourished. SKIN: warm and dry, no rash HEAD: normocephalic, atraumatic EYES: No scleral icterus. No injection or drainage. NECK: Supple, trachea midline. No JVD or lymphadenopathy. CARDIOVASCULAR: Regular rate and rhythm without murmurs, gallops, or rubs. RESPIRATORY: Breath sounds equal bilaterally. No accessory muscle use. GASTROINTESTINAL: Abdomen soft, non-tender, nondistended. MUSCULOSKELETAL: No cyanosis. Left lower extremity knee immobilizer in place. Left hip dressing clean, dry and intact. 50% weight bearing left lower extremity. Results Procedures completed during hospitalization: Manipulation of left hip under anesthesia with closed reduction, revision of left total hip arthroplasty 2017 Labs on day of discharge: Labs from last 24 hours 07/20/18 07/19/18 07/19/18 07:31 21:28 16:01 POC Glucose 105 102 92 07/19/18 07/19/18 12:06 08:05 POC Glucose 129 H 109 Preliminary micro results at discharge 07/18/18 12:00 Wound Culture - Preliminary Tissue - Hip No growth in 24 hours Impressions ITS Impressions Hip X-Ray 07/18/18 00:00 CONCLUSION: Anatomic alignment. Jorden Lester MD FACR : Discharge Plan Discharge Disposition Patient Disposition: W/Home Health Service Discharge Condition Condition: Stable Discharge Order Discharge Orders: Discharge Order (Routine); Ordered 07/20/18 Ordered By: Uzma Patel Discharge Details Anticipated Discharge Date: 07/20/18 Physicians Team ED Provider: Eladio Norman Primary Care Provider: Sherman Anderson Attending Provider: Percy Castellanos Other Providers: Anne Gomez ; Jimbo Melendez ; [facility] Rxs /Orders / Referrals /Forms Prescriptions: New hydrocodone-acetaminophen [Marne] 10-325 mg Tablet 1 tab PO Q4H Qty: 40 RF: 0 rivaroxaban [Xarelto] 10 mg Tablet 10 mg PO DAILY Qty: 14 RF: 0 celecoxib [Celebrex] 200 mg Capsule 200 mg PO DAILY Qty: 3 RF: 0 Continue metformin 500 mg Tablet 500 mg PO DAILY RF: 0 methotrexate sodium 10 mg Tablet 20 mg PO QWEEK RF: 0 pravastatin 40 mg Tablet 40 mg PO DAILY RF: 0 leflunomide 20 mg Tablet 20 mg PO DAILY RF: 0 tamsulosin 0.4 mg Capsule 0.4 mg PO DAILY RF: 0 sertraline 50 mg Tablet 50 mg PO DAILY RF: 0 Discontinued aspirin 81 mg Tablet,Delayed Release (Dr/Ec) 81 mg PO DAILY RF: 0 No Action lorazepam [Ativan] 1 mg Tablet 1 mg PO DAILY RF: 0 hydrocodone-acetaminophen [Marne] 5-325 mg tablet 1 tab PO Q6H PRN (Reason: pain) Qty: 12 RF: 0 Ambulatory Orders / Order Sets / DME: Walker Folding (Routine) Location: Determined by Patient Ordered By: Corky Rojas Wheelchair (1 each) (Routine) Location: Determined by Patient Ordered By: Corky Rojas Referrals: Sherman Anderson MD [Primary Care Provider] - See Instructions (Follow up in 1 week. ) Jimbo Melendez MD [Physician] - See Instructions (2 weeks) Discharge Instructions Patient Printed Instructions: Hydrocodone/Acetaminophen (By mouth), Laxative, Stool Softeners (By mouth), Rivaroxaban (By mouth), Narcotic Pain Management (DC ), Precautions after Total Joint Replacement Surgery (DC), Fall Prevention (DC) , Total Hip Replacement (DC), Hip Abduction Pillow (DC), Deep Vein Thrombosis Prevention (DC) Additional Instructions: 50% WEIGHT BEARING LEFT LEG KNEE BRACE AT ALL TIMES ABDUCTION PILLOW WHILE IN BED FOLLOW UP WITH DR. MELENDEZ IN 2 WEEKS. CALL TO SCHEDULE TAKE MEDICATIONS PRESCRIBED IN CASE OF EMERGENCY CALL 911 OR RETURN TO EMERGENCY ROOM Post Discharge Care Plan Care Plan Goals: Discharge Care Plan Goals for Total Hip Replacement You had a hip replacement surgery. This means your natural hip was replaced with an artificial joint (prosthesis). You may be recovering at home or in a rehabilitation facility. Either way, you must take care of your new hip. Here are some goals to help you heal well. Directions to Meet your Goals: 1. Activity & Exercises: * Take pain medicine as directed by your doctor. * Dont drive until your doctor says its OK. And never drive while taking opioid pain medicine. * Wear the support stockings you were given in the hospital as directed by your surgeon. * Dont sit for more than 30 to 45 minutes at one time. * Dont lean forward while sitting. * Dont cross your legs. * Keep your feet flat on the floor. Dont turn your foot or leg inward. This stresses your hip joint. * Use an elevated toilet seat for 6 weeks after surgery. * Nap if you are tired, but dont stay in bed all day. * Sit on a firm cushion when you ride in a car and avoid sitting too low. Try not to bend your hip too much when getting in and out of the car. 2. Prevent Falls/Injury: * Follow your doctors orders regarding how much weight to put on the affected leg. * Dont bend at the hip when you bend over. Don't bend at the waist to put on socks and shoes. And avoid picking up items from the floor. * Use a cane, crutches, a walker, or handrails until your balance, flexibility, and strength improve. And remember to ask for help from others when you need it. * Free up your hands so that you can use them to keep balance. Use a yasmeen pack , apron, or pockets to carry things. * Arrange your household to keep the items you need handy. Keep everything else out of the way. * Remove items that may cause you to fall, such as throw rugs and electrical cords. * Use nonslip bath mats, grab bars, an elevated toilet seat, and a shower chair in your bathroom * Sit on a shower stool or chair when you shower to keep from falling. 3. Precautions: * Prevent infection. Any infection will need to be treated immediately. Call your doctor right away if you think you might have an infection. * Tell your dentist that you have an artificial joint and take antibiotics as prescribed before any dental work. * Tell all your healthcare providers about your artificial joint before any medical procedure. * Maintain a healthy weight. Get help to lose any extra pounds. Added body weight puts stress on the joints. 4. Incision Care: * Prevent infection by washing your hands often. If an infection occurs, it will need to be treated right away. * Call your doctor right away if you think you may have an infection. Symptoms include a fever or an incision that leaks white, green, or yellow fluid. * Don't soak your incision in water until your doctor says its OK. This means no hot tubs, bathtubs, or swimming pools. * Follow your doctor's instructions for changing the dressing. * Dont rub the incision, or apply creams or lotions to it. * If you notice any redness or drainage around the bandage site, contact your surgeon's office immediately. 5. Follow-Up: Do Not miss your follow-up appointment. Keep up with all your appointments and yearly check ups When to call your doctor: Call your doctor right away if you have: Hip pain gets worse Pain or swelling in your calf or leg not related to your incision Tenderness or redness in your calf Fever of 100.4F (38C) or higher, or as directed by your healthcare provider Shaking chills Swelling or redness at the incision site gets worse Fluid draining from the incision Call 911: Call 911 right away if you have: Chest pain Shortness of breath Any pain or tenderness in your calf Discharge Interventions Interventions: Discharge Planning - Case Management Last Done: 07/19/18 15:26 Status ED Status: Left Department
[2018-07-20] MEDS: Sodium Chloride 0.9% 2 ML Flush BID IV.FLUSH SCH (09:45)
[2018-07-20] MEDS: Senna/Docusate Sodium 8.6/50 MG Tablet PO SCH (09:45)
--- NOTE | 2018-07-20 19:48 | P.PNOP ---
Subjective Interval history: Patient comfortable Physical Exam Vital signs: Vital Signs 07/19/18 20:00 07/19/18 21:40 07/20/18 00:00 Temperature 98.3 F 97.8 F Pulse Rate 66 66 Respiratory Rate 18 17 Blood Pressure 166/79 H 153/60 H Pulse Oximetry 99 99 98 07/20/18 04:00 07/20/18 08:00 Temperature 97.6 F 97.5 F L Pulse Rate 60 69 Respiratory Rate 18 18 Blood Pressure 155/73 H 136/61 Pulse Oximetry 98 100 Intake & Output 07/20/18 07/20/18 07/21/18 06:59 18:59 06:59 Intake Total 1280 / 1280 50 / 50 Output Total 200 / 200 Balance 1280 / 1280 -150 / -150 Weight 93.4 kg Intake: IV 100 / 100 50 / 50 Ancef 2 GM Premix Inj 2 gm In 100 / 100 50 / 50 50 ml @ 100 mls/hr IV.SIG Q8H BLAKE Rx#:[id number] Oral 1180 / 1180 Output: Urine 200 / 200 Other: # Voids 7 Date of Last Bowel Movement 07/17/18 07/20/18 # Bowel Movements 2 Narrative: Left hip dressing C/D/I calves soft negative Homans knee immobilizer in place NVI - Urinary Catheter Management Indwelling Urethral Catheter Cath placed during this visit: yes, but has since been removed by the nurse Reason for continuing: Continue criteria not met Removal date: 07/19/18 Removal time: 04:20 Results - Labs CBC & Chem 7: 07/19/18 04:15 07/17/18 10:20 Laboratory Results - last 24 hr 07/19/18 07/20/18 21:28 07:31 POC Glucose 102 105 Microbiology 07/18/18 12:00 Tissue - Hip Gram Stain - Final 07/18/18 12:00 Tissue - Hip Wound Culture - Preliminary No growth in 48 hours - Procedures Manipulation of left hip under anesthesia with closed reduction, revision of left total hip arthroplasty 07/18/2018 Assessment and Plan - Problem List (1) Dislocation of hip, left, closed Code(s): S73.005A - Unspecified dislocation of left hip, initial encounter Status: Acute (2) Failed total hip arthroplasty with dislocation Code(s): T84.028A - Dislocation of other internal joint prosthesis, initial encounter; Z96.649 - Presence of unspecified artificial hip joint Status: Acute - Assessment and Plan 1) Left Total Hip revision - POD 1 -50%WB -strict posterior hip precautions -knee brace at all times -abduction pillow when in bed -daily dressing changes POD 2 with primapore. -CM for DC planning. Anticipating Home today -scripts on chart -DVT prophylaxis -f/u with Nora or FRIEDA in 2 weeks
--- NOTE | 2018-07-21 12:40 | XR ---
EXAM DATE: 07/21/2018 12:17 PM EST AGE/SEX: 68 years / Male INDICATIONS: Hip replacement CLINICAL DATA: This is the patient's initial encounter. Patient reports that signs and symptoms have been present for 1 day and indicates a pain score of Nonresponsive. MEDICAL/SURGICAL HISTORY: Non-responsive. Non-responsive. COMPARISON: C, HIP LEFT W AP PELVIS 2V, 07/17/2018. . FINDINGS: Anatomic alignment in the AP projection. Distal tip of the prosthesis is not visualized. CONCLUSION: Anatomic alignment AP projection Electronically signed by: Jorden Lester MD 07/21/2018 12:39 PM EST
== END 2018-07-20 12:30 | disposition home health service (06) ==
LOC: NEPE 08:13 → NEDA 08:13 → NEPE 12:23 → N06 15:27
PROVIDERS: ADMIT Internal Medicine; ATTEND Internal Medicine
DX: E11.9 Type 2 diabetes mellitus without complications; M19.90 Unspecified osteoarthritis, unspecified site; Y79.2 Prosthetic and other implants, materials and accessory orthopedic devices associated with adverse incidents; M24.452 Recurrent dislocation, left hip; Z79.84 Long term (current) use of oral hypoglycemic drugs; Z87.891 Personal history of nicotine dependence; R03.0 Elevated blood-pressure reading, without diagnosis of hypertension; T84.021A Dislocation of internal left hip prosthesis, initial encounter; Z79.82 Long term (current) use of aspirin; F41.9 Anxiety disorder, unspecified; L40.50 Arthropathic psoriasis, unspecified; Z79.899 Other long term (current) drug therapy